=== PATIENT | female | born 1940 | race Caucasian/White ===

== ENCOUNTER 2019-02-22 08:17 | Inpatient (IN) | payer MEDICARE ==
[~2019-02-22] VITALS: Ht 162.6 cm; Wt 63.8 kg
[2019-02-22 14:27] VITALS: BP 117/73
[2019-02-22] MEDS ORDERED: ACETAMINOPHEN 325 MG TABLET PO PRN (15:15)
[2019-02-22] MEDS ORDERED: METHYL SALICYLATE/MENTHOL TOPICAL OINTMENT 29GM TUBE. TP PRN (15:15)
[2019-02-22] MEDS ORDERED: MAGNESIUM HYDROXIDE 2,400 MG/30 ML ORAL.SUSP. PO PRN (15:15)
[2019-02-22] MEDS ORDERED: MAG HYDROX/AL HYDROX/SIMETH 30 ML ORAL.SUSP PO PRN (15:15)
[2019-02-22 16:38] VITALS: BP 97/51
[2019-02-22] MEDS ORDERED: traZODone 50 MG TABLET. PO PRN (16:45)
--- NOTE | 2019-02-22 16:52 | RAD ---
PQRS Compliance Statement: One or more of the following individualized dose reduction techniques were utilized for this examination: 1. Automated exposure control 2. Adjustment of the mA and/or kV according to patient size 3. Use of iterative reconstruction technique CT HEAD WITHOUT CONTRAST History: Recent history of falls and altered mental status. Comparison: None. Technique: Axial images are obtained of the head from the skull base through the vertex without IV contrast. Findings: No mass-effect, midline shift, extra-axial fluid collection, hemorrhage, or obvious acute infarction is identified. Basilar cisterns are patent. The ventricles and sulci are prominent, consistent with age-related cerebral atrophy. There is mild supratentorial white matter hypoattenuation. This is a nonspecific finding but is commonly due to chronic small vessel ischemic disease. Bone windows demonstrate no acute calvarial abnormality. The visualized paranasal sinuses are clear. Mastoid air cells are well aerated. IMPRESSION: 1. No acute intracranial abnormality. 2. Mild generalized cerebral atrophy and mild supratentorial white matter changes probably due to chronic small vessel ischemic disease. Electronically signed by: Mariano Lujan MD (02/22/2019 4:50 PM) [id number]
--- NOTE | 2019-02-22 18:08 | EKG ---
[address] [address] Test Date: 2019-02-22 Test Time: 17:50:17 Pat Name: JEAN DESAI Department: Room: [address] [place] [address] Gender: F Munitions Handler: : 1940 Requested By: NILSON OLIVARES Order Number: [id number] Reading MD: Measurements Intervals [place] Rate: 84 P: 52 IL: 170 QRS: -22 QRSD: 86 T: 32 QT: 366 QTc: 436 Interpretive Statements SINUS RHYTHM LEFTWARD AXIS OTHERWISE NORMAL ECG RI6.02 No previous ECG available for comparison
[2019-02-22 19:17] LABS: BACTERIA,URINE FEW /HPF (0-FEW); BILIRUBIN,URINE NEG (NEG); CLARITY,URINE CLOUDY; COLOR,URINE YELLOW; GLUCOSE,URINE NEG (NEG); NITRITE,URINE NEG (NEG); RBC,URINE 0 /HPF (0-2); SQUAMOUS EPITHELIAL CELL,UR OCC /LPF; UROBILINOGEN,URINE 0.2 mg/dL (0.2 mg/dL)
[2019-02-22] MEDS: traZODone 50 MG TABLET. PO SCH (20:13)
--- NOTE | 2019-02-22 22:44 | PDOC ---
Exam Note: Donato Note: Please also refer to the separate dictated note~for this date of service dictated separately. Discussed the patient with Nursing staff reviewed the chart.~Reviewed interim history and current functioning. Reviewed vital signs,~Labs/ Radiology~and current medications noted below. Continue current treatment with the changes noted in the dictated addendum note Assessment: Vital Signs/I&O: Vital Signs Date Time Temp Pulse Resp B/P (MAP) Pulse Ox O2 Delivery O2 Flow Rate FiO2 02/22/19 16:38 98.7 76 18 97/51 (66) 95 Labs: Laboratory Tests Test 02/22/19 18:45 Urine Collection Type Unknown Urine Color Yellow Urine Clarity Cloudy Urine pH 6.0 Urine Specific [place] 1.025 Urine Protein Neg (NEG-TRACE) Urine Glucose (UA) Neg mg/dL (NEG) Urine Ketones (Stick) Trace mg/dL (NEG) Urine Blood Neg (NEG) Urine Nitrite Neg (NEG) Urine Bilirubin Neg (NEG) Urine Urobilinogen Dipstick 0.2 mg/dL (0.2 mg/dL) Urine Leukocyte Esterase Small (NEG) Urine RBC 0 /HPF (0-2) Urine WBC 1-4 /HPF (0-4) Urine Squamous Epithelial Cells Occ /LPF Urine Bacteria Few /HPF (0-FEW) Current Medications: Meds: Current Medications Medications (Trade) Dose Ordered Sig/Jabari Route PRN Reason Start Time Stop Time Status Last Admin Dose Admin Trazodone HCl (Desyrel) 50 mg QHS PO 02/22/19 21:00 02/22/19 20:13 I have reviewed the current psychotropics carefully including drug interactions. Risk benefit ratio favors no change other than as noted in my dictated progress note. Diagnosis: Problems: (1) Anxiety disorder (2) Schizoaffective disorder, bipolar type (3) Psychosis, atypical (4) Mild cognitive impairment NILSON OLIVARES MD Feb 22, 2019 22:44
[2019-02-23 06:12] VITALS: BP 93/62
[2019-02-23 07:39] LABS: BASO % 1 % (0-3); EOS # 0.1 x10^3/uL (0.0-0.7); EOS % 3 % (0-3); HEMATOCRIT 37.3 % (36.0-47.0); HEMOGLOBIN 12.6 g/dL (12.0-15.5); LYMPH % 32 % (24-48); MEAN CORPUSCULAR HEMOGLOBIN 30 pg (25-35); MEAN CORPUSCULAR HGB CONC 34 g/dL (31-37); MEAN CORPUSCULAR VOLUME 88 fL (79-100); MONO # 0.4 x10^3/uL (0.0-1.1); MONO % 13 % (0-9); NEUT # 1.7 x10^3uL (1.8-7.7); NEUT % 52 % (31-73); PLATELET COUNT 260 x10^3/uL (140-400); RED BLOOD COUNT 4.22 x10^6/uL (3.50-5.40); RED CELL DISTRIBUTION WIDTH 13.2 % (11.5-14.5); WHITE BLOOD COUNT 3.3 x10^3/uL (4.0-11.0)
[2019-02-23 07:44] LABS: ALBUMIN/GLOBULIN RATIO 0.9 (1.0-1.7); CALCIUM 8.3 mg/dL (8.5-10.1); CREATININE 0.6 mg/dL (0.6-1.0); GFR 97.2; MAGNESIUM 2.1 mg/dL (1.8-2.4); POTASSIUM 3.7 mmol/L (3.5-5.1); TOTAL BILIRUBIN 0.4 mg/dL (0.2-1.0); TOTAL PROTEIN 6.3 g/dL (6.4-8.2)
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
[2019-02-23 15:38] LABS: THYROID STIM HORMONE (TSH) 1.659 uIU/mL (0.358-3.740)
[2019-02-23 16:14] VITALS: BP 117/77
[2019-02-23] MEDS: traZODone 50 MG TABLET. PO SCH (19:46)
[2019-02-23 21:11] LABS: THYROXINE 6.1 ug/dL (4.5-12.0)
--- NOTE | 2019-02-23 22:40 | PDOC ---
Exam Note: Donato Note: Please also refer to the separate dictated note~for this date of service dictated separately.~Patient seen individually. Discussed the patient with Nursing staff reviewed the chart.~Reviewed interim history and current functioning. Reviewed vital signs,~Labs/ Radiology~and current medications noted below. Continue current treatment with the changes noted in the dictated addendum note Assessment: Vital Signs/I&O: Vital Signs Date Time Temp Pulse Resp B/P (MAP) Pulse Ox O2 Delivery O2 Flow Rate FiO2 02/23/19 16:14 98.1 84 16 117/77 (90) 95 I & O 02/22/19 02/22/19 02/23/19 14:59 22:59 06:59 Intake Total 240 ml 240 ml Balance 240 ml 240 ml Labs: Laboratory Tests Test 02/23/19 07:09 White Blood Count 3.3 x10^3/uL (4.0-11.0) L Red Blood Count 4.22 x10^6/uL (3.50-5.40) Hemoglobin 12.6 g/dL (12.0-15.5) Hematocrit 37.3 % (36.0-47.0) Mean Corpuscular Volume 88 fL (79-100) Mean Corpuscular Hemoglobin 30 pg (25-35) Mean Corpuscular Hemoglobin Concent 34 g/dL (31-37) Red Cell Distribution Width 13.2 % (11.5-14.5) Platelet Count 260 x10^3/uL (140-400) Neutrophils (%) (Auto) 52 % (31-73) Lymphocytes (%) (Auto) 32 % (24-48) Monocytes (%) (Auto) 13 % (0-9) H Eosinophils (%) (Auto) 3 % (0-3) Basophils (%) (Auto) 1 % (0-3) Neutrophils # (Auto) 1.7 x10^3uL (1.8-7.7) L Lymphocytes # (Auto) 1.0 x10^3/uL (1.0-4.8) Monocytes # (Auto) 0.4 x10^3/uL (0.0-1.1) Eosinophils # (Auto) 0.1 x10^3/uL (0.0-0.7) Basophils # (Auto) 0.0 x10^3/uL (0.0-0.2) Sodium Level 139 mmol/L (136-145) Potassium Level 3.7 mmol/L (3.5-5.1) Chloride Level 103 mmol/L (98-107) Carbon Dioxide Level 28 mmol/L (21-32) Anion Gap 8 (6-14) Blood Urea Nitrogen 16 mg/dL (7-20) Creatinine 0.6 mg/dL (0.6-1.0) Estimated GFR (Cockcroft-Gault) 97.2 BUN/Creatinine Ratio 27 (6-20) H Glucose Level 97 mg/dL (70-99) Calcium Level 8.3 mg/dL (8.5-10.1) L Magnesium Level 2.1 mg/dL (1.8-2.4) Iron Level 43 ug/dL (50-170) L Total Iron Binding Capacity 203 ug/dL (250-450) L Iron Saturation 21 % (15-34) Total Bilirubin 0.4 mg/dL (0.2-1.0) Aspartate Amino Transferase (AST) 34 U/L (15-37) Alanine Aminotransferase (ALT) 42 U/L (14-59) Alkaline Phosphatase 76 U/L (46-116) Total Protein 6.3 g/dL (6.4-8.2) L Albumin 3.0 g/dL (3.4-5.0) L Albumin/Globulin Ratio 0.9 (1.0-1.7) L Triglycerides Level 35 mg/dL (0-150) Cholesterol Level 186 mg/dL (0-200) LDL Cholesterol, Calculated 117 mg/dL (0-100) H VLDL Cholesterol, Calculated 7 mg/dL (0-40) Non-HDL Cholesterol Calculated 124 mg/dL (0-129) HDL Cholesterol 62 mg/dL (40-60) H Cholesterol/HDL Ratio 3.0 25-Hydroxy Vitamin D Total 50.7 ng/mL (30-100) Thyroid Stimulating Hormone (TSH) 1.659 uIU/mL (0.358-3.740) Thyroxine (T4) 6.1 ug/dL (4.5-12.0) Total Triiodothyronine (TT3) 86 ng/dL (71-180) Treponema pallidum Antibody Nonreactive (Nonreactive) Current Medications: I have reviewed the current psychotropics carefully including drug interactions. Risk benefit ratio favors no change other than as noted in my dictated progress note. Diagnosis: Problems: (1) Impulse control disorder (2) Anxiety disorder (3) Schizoaffective disorder, bipolar type (4) Psychosis, atypical (5) Mild cognitive impairment NILSON OLIVARES MD Feb 23, 2019 22:40
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
[2019-02-24 02:44] LABS: HEMOGLOBIN A1C 5.4 % (4.8-5.6)
[2019-02-24 06:15] VITALS: BP 105/69
[2019-02-24 15:40] VITALS: BP 92/56
[2019-02-24] MEDS: DIVALPROEX ER 500 MG TAB.ER.24H PO SCH (20:04)
[2019-02-24] MEDS: MIRTAZAPINE 7.5 MG TABLET. PO SCH (20:06)
--- NOTE | 2019-02-24 23:04 | PDOC ---
Exam Note: Donato Note: Please also refer to the separate dictated note~for this date of service dictated separately.~Patient seen individually. Discussed the patient with Nursing staff reviewed the chart.~Reviewed interim history and current functioning. Reviewed vital signs,~Labs/ Radiology~and current medications noted below. Continue current treatment with the changes noted in the dictated addendum note Assessment: Vital Signs/I&O: Vital Signs Date Time Temp Pulse Resp B/P (MAP) Pulse Ox O2 Delivery O2 Flow Rate FiO2 02/24/19 15:40 98.4 76 16 92/56 (68) 97 02/24/19 06:15 Room Air I & O 02/23/19 02/23/19 02/24/19 15:00 23:00 07:00 Intake Total 600 ml 240 ml Balance 600 ml 240 ml Current Medications: Meds: Current Medications Medications (Trade) Dose Ordered Sig/Jabari Route PRN Reason Start Time Stop Time Status Last Admin Dose Admin Mirtazapine (Remeron) 7.5 mg QHS PO 02/24/19 21:00 02/24/19 20:06 Divalproex Sodium (Depakote Er) 500 mg QHS PO 02/24/19 21:00 02/24/19 20:04 I have reviewed the current psychotropics carefully including drug interactions. Risk benefit ratio favors no change other than as noted in my dictated progress note. Diagnosis: Problems: (1) Impulse control disorder (2) Anxiety disorder (3) Schizoaffective disorder, bipolar type (4) Psychosis, atypical (5) Mild cognitive impairment NILSON OLIVARES MD Feb 24, 2019 23:04
[2019-02-25 05:58] VITALS: BP 106/60
[2019-02-25] MEDS ORDERED: MAGN400T3 PO (12:35)
[2019-02-25] MEDS ORDERED: [UNRECOGNIZED DRUG - CODE] PO (12:35)
--- NOTE | 2019-02-25 13:47 | PN ---
DATE: 02/23/2019 PSYCHIATRIC PROGRESS NOTE This is a late entry 02/23/2019 covers elements not covered in my initial note. SUBJECTIVE: I met with the patient in the evening at some length in her room. The patient slept 6-1/2 hours previous evening. Overall, she remains somewhat withdrawn, anxious. REVIEW OF SYSTEMS: No CV, , pulmonary, eye, ENT system symptoms on review. She was paranoid, somewhat delusional per nursing report, still believes her blood is dog urine. MENTAL STATUS EXAM: Oriented to herself and situation. Speech has some latency, coherent. Abstraction fair, computation impaired, language function intact. She was smiling as I met with her, somewhat minimizing any of her psychiatric symptoms. LABORATORY DATA: Reviewed. IMPRESSION: Schizoaffective disorder, bipolar type, mixed with psychotic features; anxiety disorder, unspecified; mild cognitive impairment. PLAN: We are obtaining past psychiatric records from her providers. We will add trazodone p.r.n. for insomnia. Rest unchanged for now. NILSON OLIVARES MD DR: KARINA/kaitlin JOB#: [id number] / [id number]
[2019-02-25] MEDS: ARIPiprazole 5 MG TABLET PO SCH (14:12)
[2019-02-25 16:00] VITALS: BP 112/68
[2019-02-25] MEDS: MAGNESIUM OXIDE 400 MG TABLET PO SCH (17:33)
[2019-02-25] MEDS: [UNRECOGNIZED DRUG - OTHER] PO SCH (17:33)
[2019-02-25] MEDS: MIRTAZAPINE 7.5 MG TABLET. PO SCH (19:22)
[2019-02-25] MEDS: DIVALPROEX ER 500 MG TAB.ER.24H PO SCH (19:22)
--- NOTE | 2019-02-25 22:44 | PDOC ---
Exam Note: Donato Note: Please also refer to the separate dictated note~for this date of service dictated separately.~Patient seen individually. Discussed the patient with Nursing staff reviewed the chart.~Reviewed interim history and current functioning. Reviewed vital signs,~Labs/ Radiology~and current medications noted below. Continue current treatment with the changes noted in the dictated addendum note Assessment: Vital Signs/I&O: Vital Signs Date Time Temp Pulse Resp B/P (MAP) Pulse Ox O2 Delivery O2 Flow Rate FiO2 02/25/19 16:00 97.9 81 18 112/68 (83) 97 02/24/19 06:15 Room Air I & O 02/24/19 02/24/19 02/25/19 15:00 23:00 07:00 Intake Total 960 ml 720 ml Balance 960 ml 720 ml Current Medications: Meds: Current Medications Medications (Trade) Dose Ordered Sig/Jabari Route PRN Reason Start Time Stop Time Status Last Admin Dose Admin Aripiprazole (Abilify) 5 mg DAILY PO 02/25/19 09:00 02/25/19 14:12 Magnesium Oxide (Magnesium Oxide) 400 mg BIDACLD PO 02/25/19 16:30 02/25/19 17:33 Non-Formulary Medication 1 ea TIDAC PO 02/25/19 16:30 02/25/19 17:33 I have reviewed the current psychotropics carefully including drug interactions. Risk benefit ratio favors no change other than as noted in my dictated progress note. Diagnosis: Problems: (1) Impulse control disorder (2) Anxiety disorder (3) Schizoaffective disorder, bipolar type (4) Psychosis, atypical (5) Mild cognitive impairment NILSON OLIVARES MD Feb 25, 2019 22:44
[2019-02-26 05:55] VITALS: BP 116/71
[2019-02-26] MEDS: ARIPiprazole 5 MG TABLET PO SCH (07:52)
[2019-02-26] MEDS: [UNRECOGNIZED DRUG - OTHER] PO SCH ×3 (07:52→18:26)
[2019-02-26] MEDS: MAGNESIUM OXIDE 400 MG TABLET PO SCH ×2 (12:14→18:26)
--- NOTE | 2019-02-26 13:12 | PN ---
DATE: 02/24/2019 PSYCHIATRIC PROGRESS NOTE This late entry 02/24/2019 covers elements not covered in my initial note. SUBJECTIVE: I met with the patient in the evening and staffed a treatment team meeting with the entire team earlier in the day. The patient slept 6-1/2 hours. Appetite 100%. I have reviewed past psychiatric records for outpatient treatment, the diagnosis of psychotic disorder versus schizoaffective disorder and relative noncompliance with treatment. Reviewed the history prompting admission including being extremely hyperverbal, grandiose, psychotic and then the presentation at the long-term and then refer to us from [facility]. REVIEW OF SYSTEMS: No CV, , pulmonary, eye, ENT system symptoms on review. MENTAL STATUS EXAM: Oriented to herself and situation. Insight limited, judgment marginal, language function intact, attention span short. Mood and affect remains somewhat withdrawn at times, labile. LABORATORY DATA: Reviewed. IMPRESSION: Schizoaffective disorder, bipolar type, mixed with psychotic features; anxiety disorder, unspecified; mild cognitive impairment. PLAN: Continue current psychotropics including Remeron 7.5 mg at bedtime. I was informed by the she is unable to tolerate trazodone due to burning sensations in the chest. Given her schizoaffective disorder we will start her on Depakote ER 500 mg at bedtime. Check CBC, CMP, valproic acid level in 3 days and Abilify [address] head shows atrophy, white matter changes. NILSON OLIVARES MD DR: KARINA/kaitlin JOB#: [id number] / [id number]
[2019-02-26 16:20] VITALS: BP 106/68
[2019-02-26] MEDS: MIRTAZAPINE 7.5 MG TABLET. PO SCH (19:27)
[2019-02-26] MEDS: DIVALPROEX ER 500 MG TAB.ER.24H PO SCH (19:27)
--- NOTE | 2019-02-26 22:14 | PDOC ---
Exam Note: Donato Note: Please also refer to the separate dictated note~for this date of service dictated separately.~Patient seen individually. Discussed the patient with Nursing staff reviewed the chart.~Reviewed interim history and current functioning. Reviewed vital signs,~Labs/ Radiology~and current medications noted below. Continue current treatment with the changes noted in the dictated addendum note Assessment: Vital Signs/I&O: Vital Signs Date Time Temp Pulse Resp B/P (MAP) Pulse Ox O2 Delivery O2 Flow Rate FiO2 02/26/19 16:20 98.6 71 16 106/68 (81) 97 02/26/19 05:55 Room Air I & O 02/25/19 02/25/19 02/26/19 14:59 22:59 06:59 Intake Total 960 ml 240 ml 0 ml Balance 960 ml 240 ml 0 ml Current Medications: I have reviewed the current psychotropics carefully including drug interactions. Risk benefit ratio favors no change other than as noted in my dictated progress note. Diagnosis: Problems: (1) Impulse control disorder (2) Anxiety disorder (3) Schizoaffective disorder, bipolar type (4) Psychosis, atypical (5) Mild cognitive impairment NILSON OLIVARES MD Feb 26, 2019 22:14
--- NOTE | 2019-02-27 02:03 | PN ---
DATE: 02/25/2019 PSYCHIATRIC PROGRESS NOTE This late entry of February 25 covers elements not covered in my initial note. SUBJECTIVE: I met with the patient in the evening at length in her room. Per nursing staff, the patient slept 9-1/2 hours. She is somewhat withdrawn. Her is insistent on discharging her AMA. I returned his call, . stated that they are Catholics and they often hear and see things as part of their sabianist. He states the reason he agreed to let her go to the Emergency Room because there was nothing he could do to "bring her down." He states, however, most of the problems happened after she arrived in the Emergency Room and was given Haldol and that made her hallucinate. He is convinced that the Haldol causes her to be psychotic and if left for herself she would be just fine. He is quite insistent on her discharge quickly and states she has been tried on every psychotropic medications and nothing has worked. I had a lengthy discussion with him trying to help him understand her diagnosis, treatment, but it is unclear to what extent he is able to incorporate this in his thought processes. REVIEW OF SYSTEMS: No CV, , pulmonary, eye system symptoms on review. MENTAL STATUS EXAM: The patient is withdrawn to her room. Per nursing report has been hearing demons and voices. Abstraction fair. Computation impaired. Language function intact. She minimizes the fact that her blood is dog urine, but is quite suspicious, delusional. No active suicidal or homicidal ideation. LABORATORY DATA: Reviewed. IMPRESSION: Schizoaffective disorder, bipolar type, mixed with psychotic features; anxiety disorder, unspecified; psychotic disorder, unspecified. PLAN: Continue Depakote ER 500 mg at bedtime. Check labs level, adjust as indicated. Remeron continue 7.5 mg at bedtime and Abilify 5 mg a day. I am not sure if the will discharge her AMA, but we will have the social service staff coordinate with the on February 26. MAN Bam OLIVARES MD DR: KARINA/kaitlin JOB#: [id number] / [id number]
[2019-02-27 06:08] VITALS: BP 106/67
[2019-02-27 08:03] LABS: HEMATOCRIT 38.9 % (36.0-47.0); HEMOGLOBIN 12.8 g/dL (12.0-15.5); RED BLOOD COUNT 4.3 x10^6/uL (3.50-5.40); RED CELL DISTRIBUTION WIDTH 13.2 % (11.5-14.5); WHITE BLOOD COUNT 4.3 x10^3/uL (4.0-11.0)
[2019-02-27] MEDS: [UNRECOGNIZED DRUG - OTHER] PO SCH ×3 (08:16→16:58)
[2019-02-27] MEDS: MAGNESIUM OXIDE 400 MG TABLET PO SCH ×2 (08:16→17:00)
[2019-02-27] MEDS: ARIPiprazole 5 MG TABLET PO SCH (08:18)
[2019-02-27 08:22] LABS: ALBUMIN 2.8 g/dL (3.4-5.0); ALBUMIN/GLOBULIN RATIO 0.8 (1.0-1.7); ALK PHOS 66 U/L (46-116); ALT (SGPT) 31 U/L (14-59); ANION GAP 5 (6-14); AST (SGOT) 23 U/L (15-37); BLOOD UREA NITROGEN 14 mg/dL (7-20); BUN/CREATININE RATIO 23 (6-20); CARBON DIOXIDE 29 mmol/L (21-32); CHLORIDE 104 mmol/L (98-107); CREATININE 0.6 mg/dL (0.6-1.0); GFR 97.2; GLUCOSE 90 mg/dL (70-99); SODIUM 138 mmol/L (136-145); TOTAL BILIRUBIN 0.2 mg/dL (0.2-1.0); TOTAL PROTEIN 6.5 g/dL (6.4-8.2)
[2019-02-27 08:35] LABS: VAL ACID 48 mcg/mL (50-100)
[2019-02-27 15:58] VITALS: BP 102/68
[2019-02-27] MEDS: DIVALPROEX ER 500 MG TAB.ER.24H PO SCH (19:18)
[2019-02-27] MEDS: DIVALPROEX ER 250 MG TAB.ER.24H. PO SCH (20:57)
--- NOTE | 2019-02-27 22:55 | PDOC ---
Exam Note: Donato Note: Please also refer to the separate dictated note~for this date of service dictated separately.~Patient seen individually. Discussed the patient with Nursing staff reviewed the chart.~Reviewed interim history and current functioning. Reviewed vital signs,~Labs/ Radiology~and current medications noted below. Continue current treatment with the changes noted in the dictated addendum note Assessment: Vital Signs/I&O: Vital Signs Date Time Temp Pulse Resp B/P (MAP) Pulse Ox O2 Delivery O2 Flow Rate FiO2 02/27/19 15:58 98.5 77 14 102/68 (79) 95 02/26/19 05:55 Room Air I & O 02/26/19 02/26/19 02/27/19 15:00 23:00 07:00 Intake Total 240 ml 480 ml Balance 240 ml 480 ml Labs: Laboratory Tests Test 02/27/19 07:32 White Blood Count 4.3 x10^3/uL (4.0-11.0) Red Blood Count 4.30 x10^6/uL (3.50-5.40) Hemoglobin 12.8 g/dL (12.0-15.5) Hematocrit 38.9 % (36.0-47.0) Mean Corpuscular Volume 91 fL (79-100) Mean Corpuscular Hemoglobin 30 pg (25-35) Mean Corpuscular Hemoglobin Concent 33 g/dL (31-37) Red Cell Distribution Width 13.2 % (11.5-14.5) Platelet Count 271 x10^3/uL (140-400) Sodium Level 138 mmol/L (136-145) Potassium Level 4.0 mmol/L (3.5-5.1) Chloride Level 104 mmol/L (98-107) Carbon Dioxide Level 29 mmol/L (21-32) Anion Gap 5 (6-14) L Blood Urea Nitrogen 14 mg/dL (7-20) Creatinine 0.6 mg/dL (0.6-1.0) Estimated GFR (Cockcroft-Gault) 97.2 BUN/Creatinine Ratio 23 (6-20) H Glucose Level 90 mg/dL (70-99) Calcium Level 9.0 mg/dL (8.5-10.1) Total Bilirubin 0.2 mg/dL (0.2-1.0) Aspartate Amino Transferase (AST) 23 U/L (15-37) Alanine Aminotransferase (ALT) 31 U/L (14-59) Alkaline Phosphatase 66 U/L (46-116) Total Protein 6.5 g/dL (6.4-8.2) Albumin 2.8 g/dL (3.4-5.0) L Albumin/Globulin Ratio 0.8 (1.0-1.7) L Valproic Acid Level 48 mcg/mL (50-100) L Valproic Acid Last Dose Date 02/26/19 Valproic Acid Last Dose Time 2100 Current Medications: Meds: Current Medications Medications (Trade) Dose Ordered Sig/Jabari Route PRN Reason Start Time Stop Time Status Last Admin Dose Admin Aripiprazole (Abilify) 7.5 mg DAILY PO 02/27/19 09:00 02/28/19 21:00 02/27/19 08:18 Divalproex Sodium (Depakote Er) 250 mg QHS PO 02/27/19 21:00 02/27/19 20:57 I have reviewed the current psychotropics carefully including drug interactions. Risk benefit ratio favors no change other than as noted in my dictated progress note. Diagnosis: Problems: (1) Impulse control disorder (2) Anxiety disorder (3) Schizoaffective disorder, bipolar type (4) Psychosis, atypical (5) Mild cognitive impairment NILSON OLIVARES MD Feb 27, 2019 22:55
[2019-02-28 05:51] VITALS: BP 102/67
[2019-02-28] MEDS: [UNRECOGNIZED DRUG - OTHER] PO SCH ×3 (08:01→17:02)
[2019-02-28] MEDS: MAGNESIUM OXIDE 400 MG TABLET PO SCH ×2 (08:02→17:02)
[2019-02-28] MEDS: ARIPiprazole 5 MG TABLET PO SCH (08:02)
[2019-02-28 16:20] VITALS: BP 98/65
[2019-02-28] MEDS: DIVALPROEX ER 250 MG TAB.ER.24H. PO SCH (20:25)
[2019-02-28] MEDS: DIVALPROEX ER 500 MG TAB.ER.24H PO SCH (20:25)
--- NOTE | 2019-02-28 22:07 | PN ---
DATE: 02/27/2019 PSYCHIATRIC PROGRESS NOTE This is a late entry 02/27/2019, covers the elements not covered in my initial note. SUBJECTIVE: The patient has been somewhat withdrawn, but comes out for her meals, sleeping well at night. Appetite is fair. Her visited her. Valproic acid level is subtherapeutic at 48, on Depakote ER 500 mg at bedtime. REVIEW OF SYSTEMS: No CV, , pulmonary, eye, ENT system symptoms on review. MENTAL STATUS EXAM: Oriented to herself and situation. Speech is often responses monosyllabic. No active suicidal or homicidal ideation. LABORATORY DATA: Reviewed. IMPRESSION: Unchanged from initial note. PLAN: Increase Depakote ER to 750 mg at bedtime. Check CBC, CMP, valproic acid level in 3 days to reach therapeutic level. Continue rest unchanged. MAN Bam OLIVARES MD DR: KARINA/kaitlin JOB#: [id number] / [id number]
--- NOTE | 2019-02-28 22:08 | PN ---
DATE: 02/26/2019 PSYCHIATRIC PROGRESS NOTE This late entry 02/26/2019 covers elements not covered in my initial note. SUBJECTIVE: The patient still complains of hearing demons voices at times. UA on final was noncontributory, normal barry. has informed us he does not want her on Remeron . Previous night, she was talking about hearing demonic voices. On 02/26/2019, during the day, the devil's voice was not telling her to stop drinking and eating. She has been more pleasant and interactive, though she still spends much time in the room. LABORATORY DATA: Reviewed. IMPRESSION: Unchanged from initial note. PLAN: No change from initial note and we will increase the Abilify from 5 mg a day to 7.5 mg for 2 days, then 10 mg a day for her ongoing psychosis. MAN Bam OLIVARES MD DR: KARINA/kaitlin JOB#: [id number] / [id number]
--- NOTE | 2019-02-28 22:36 | PDOC ---
Exam Note: Donato Note: Please also refer to the separate dictated note~for this date of service dictated separately.~Patient seen individually. Discussed the patient with Nursing staff reviewed the chart.~Reviewed interim history and current functioning. Reviewed vital signs,~Labs/ Radiology~and current medications noted below. Continue current treatment with the changes noted in the dictated addendum note Assessment: Vital Signs/I&O: Vital Signs Date Time Temp Pulse Resp B/P (MAP) Pulse Ox O2 Delivery O2 Flow Rate FiO2 02/28/19 16:20 97.7 85 20 98/65 (76) 95 02/28/19 05:51 Room Air I & O 02/27/19 02/27/19 02/28/19 14:59 22:59 06:59 Intake Total 360 ml 240 ml 240 ml Balance 360 ml 240 ml 240 ml Current Medications: I have reviewed the current psychotropics carefully including drug interactions. Risk benefit ratio favors no change other than as noted in my dictated progress note. Diagnosis: Problems: (1) Impulse control disorder (2) Anxiety disorder (3) Schizoaffective disorder, bipolar type (4) Psychosis, atypical (5) Mild cognitive impairment NILSON OLIVARES MD Feb 28, 2019 22:36
[2019-03-01 05:49] VITALS: BP 105/70
[2019-03-01] MEDS: [UNRECOGNIZED DRUG - OTHER] PO SCH ×2 (07:37→12:03)
[2019-03-01] MEDS: MAGNESIUM OXIDE 400 MG TABLET PO SCH (07:38)
[2019-03-01] MEDS ORDERED: ARIPiprazole 10 MG TABLET PO SCH (09:00)
[2019-03-01] MEDS ORDERED: ARIP10TA9 PO (14:11)
[2019-03-01] MEDS ORDERED: ACET325T21 PO (14:11)
[2019-03-01] MEDS ORDERED: DIVA500T4 PO (14:12)
[2019-03-01] MEDS ORDERED: DIVA250T PO (14:13)
[2019-03-01] MEDS ORDERED: MAG355OR17 PO (14:13)
[2019-03-01] MEDS ORDERED: MAGN2400 PO (14:13)
[2019-03-01] MEDS ORDERED: METH29OI TP (14:14)
[2019-03-01 15:51] VITALS: BP 118/57
--- NOTE | 2019-03-01 22:39 | PDOC ---
Exam Note: Donato Note: Please also refer to the separate dictated note~for this date of service dictated separately.~Patient seen individually. Discussed the patient with Nursing staff reviewed the chart.~Reviewed interim history and current functioning. Reviewed vital signs,~Labs/ Radiology~and current medications noted below. Continue current treatment with the changes noted in the dictated addendum note Assessment: Vital Signs/I&O: Vital Signs Date Time Temp Pulse Resp B/P (MAP) Pulse Ox O2 Delivery O2 Flow Rate FiO2 03/01/19 15:51 99.7 84 16 118/57 (77) 97 02/28/19 05:51 Room Air I & O 02/28/19 02/28/19 03/01/19 14:59 22:59 06:59 Intake Total 720 ml 240 ml 0 ml Balance 720 ml 240 ml 0 ml Current Medications: Meds: Current Medications Medications (Trade) Dose Ordered Sig/Jabari Route PRN Reason Start Time Stop Time Status Last Admin Dose Admin Aripiprazole (Abilify) 10 mg DAILY PO 03/01/19 09:00 03/01/19 16:02 DC 03/01/19 07:38 I have reviewed the current psychotropics carefully including drug interactions. Risk benefit ratio favors no change other than as noted in my dictated progress note. Diagnosis: Problems: (1) Impulse control disorder (2) Anxiety disorder (3) Schizoaffective disorder, bipolar type (4) Psychosis, atypical (5) Mild cognitive impairment NILSON OLIVARES MD Mar 01, 2019 22:39
--- NOTE | 2019-03-01 23:06 | PN ---
DATE: 02/28/2019 PSYCHIATRIC PROGRESS NOTE This is a late entry 02/28/2019 covers elements not covered in my initial note. SUBJECTIVE: I met with the patient evening of 02/28/2019 in her room. The patient slept 6-1/2 hours previous night. She has been somewhat withdrawn, spending much time in her room, has questionable hallucinations, but denies command hallucinations. REVIEW OF SYSTEMS: No CV, , pulmonary, eye, ENT system symptoms on review. Reliability varies. MENTAL STATUS EXAM: Oriented to herself and situation. Speech moderate latency, often responses monosyllabic. Abstraction fair, computation impaired, language function intact. Mood and affect is withdrawn. LABORATORY DATA: Reviewed. IMPRESSION: Unchanged from initial note. PLAN: No change from initial note. Depakote has been increased. Repeat labs level awaited, maintain Abilify at current dosage. MAN Bam OLIVARES MD DR: KARINA/kaitlin JOB#: [id number] / [id number]
--- NOTE | 2019-03-02 10:30 | DS ---
DATE OF DISCHARGE: 03/01/2019 DISCHARGE SUMMARY/PSYCHIATRIC PROGRESS NOTE This late entry, 03/01/2019, covers elements not covered in my initial note. REASON FOR ADMISSION: Please refer to the admission history for details. Briefly, the patient is a 78-year-old female referred to us from the [facility] Emergency Room where she presented from home being extremely delusional. She was convinced that she had dog urine for blood. She is grandiose, combative, throwing things at home. She tried to choke her . Noncompliant with medications. She was hearing demonic voices ordered with active auditory hallucinations and some command hallucinations. She had been noncompliant with her outpatient treatment at the [facility] and was admitted for inpatient psychiatric stabilization. SIGNIFICANT FINDINGS AND CLINICAL COURSE: Following admission, the patient was seen daily individually by myself from a psychiatric standpoint, medical followup with Dr. Dunn. Shortly into the patient's admission, was wanting to discharge her AMA. I talked to him and discussed at some length the need for hospitalization, stabilization on her psychotropics and he was agreeable to continuing this, but then again returned to demand that she be discharged AMA, which we did. No active suicidal or homicidal ideation at discharge. Prior to discharge on 03/01/2019, no CV, , pulmonary, eye, ENT system symptoms on review. MENTAL STATUS EXAM: Oriented to herself and situation. Speech is coherent, abstraction fair, computation impaired, language function intact, attention span short. She remains somewhat psychotic, paranoid. Labs reviewed. No suicidal or homicidal ideation. IMPRESSION: Schizoaffective disorder, bipolar type, mixed with psychotic features. Mild cognitive impairment; anxiety disorder, unspecified. Rest unchanged from admission. PLAN: The patient was discharged against medical advice and advised to follow up outpatient, but at the time of this dictation, I am aware that the called shortly after discharge and the patient was unmanageable at home. He said he made a mistake discharging her AMA and requesting for her to be readmitted for dangerous behaviors. Time for discharge day management greater than 30 minutes. NILSON OLIVARES MD DR: KARINA/kaitlin JOB#: [id number] / [id number]
== END 2019-03-01 16:01 | disposition left against medical advice (07) | DRG 885 ==
LOC: GEROPSY 13:54
PROVIDERS: ADMIT Psychiatry & Neurology Psychiatry; ATTEND Psychiatry & Neurology Psychiatry
DX: F25.0 Schizoaffective disorder, bipolar type (principal); F41.9 Anxiety disorder, unspecified; F63.9 Impulse disorder, unspecified; G31.84 Mild cognitive impairment of uncertain or unknown etiology; M81.0 Age-related osteoporosis without current pathological fracture; Z53.21 Procedure and treatment not carried out due to patient leaving prior to being seen by health care provider; M19.90 Unspecified osteoarthritis, unspecified site; Z79.899 Other long term (current) drug therapy; Z87.81 Personal history of (healed) traumatic fracture; Z91.14 Patient's other noncompliance with medication regimen; Z91.19 Patient's noncompliance with other medical treatment and regimen; Z88.8 Allergy status to other drugs, medicaments and biological substances
CPT/HCPCS: 36415; 70450; 80053; 80061; 80164; 81001; 82306; 83036; 83540; 83550; 83735; 84436; 84443; 84480; 85025; 85027; 86592; 87086; 93005

== ENCOUNTER 2019-03-01 17:33 | Inpatient (IN) | payer MEDICARE ==
[~2019-03-01] VITALS: Ht 162.6 cm; Wt 63.3 kg
[~2019-03-01 17:33] MED LIST: ACET325T21 PO; ARIP10TA9 PO; DIVA250T PO; DIVA500T4 PO; MAG355OR17 PO; MAGN2400 PO; MAGN400T3 PO; METH29OI TP; [UNRECOGNIZED DRUG - CODE] PO
[2019-03-01] MEDS ORDERED: ACETAMINOPHEN 120 MG SUPP.RECT ONE (17:49)
[2019-03-01] MEDS ORDERED: ACETAMINOPHEN 160 MG/5 ML ORAL.SUSP. ONE (17:50)
[2019-03-01 19:07] LABS: BACTERIA,URINE 0 /HPF (0-FEW); BILIRUBIN,URINE NEG (NEG); CLARITY,URINE HAZY; COLOR,URINE YELLOW; GLUCOSE,URINE NEG (NEG); NITRITE,URINE NEG (NEG); RBC,URINE 0 /HPF (0-2); SQUAMOUS EPITHELIAL CELL,UR OCC /LPF; UROBILINOGEN,URINE 0.2 mg/dL (0.2 mg/dL); WBC,URINE OCC /HPF (0-4)
[2019-03-01 19:48] LABS: BARBITURATES NEG (NEG); BENZODIAZEPINES NEG (NEG); CANNABINOIDS NEG (NEG); COCAINE NEG (NEG); METHADONE NEG (NEG); OPIATES NEG (NEG); PHENCYCLIDINE NEG (NEG)
--- NOTE | 2019-03-01 19:48 | PHYS DOC ---
Past History Past Medical History: Anxiety Past Surgical History: Cholecystectomy Additional Smoking Information: Nonsmoker Alcohol Use: None Drug Use: None Adult General Chief Complaint Chief Complaint: PSYCH EVALUATION HPI HPI Patient is a 78 year old female who presents with anxiety. Today she left the [facility] unit against medical advice. She was driving home with her when she started having "severe anxiety" and turned around to return to the emergency department. She reports that her left town and will not return for a few days. She has been experiencing anxiety for several years and has been in and out of the [facility] unit. She denies any other c omplaints. She has suicidal ideation saying "I would hurt myself if I could, but I don't have access to anything to do it and I am too afraid to jump in front of a car". She has homicidal ideation saying "I want to hurt my if I could, and have tried before". She is having auditory hallucinations that tell her "she is a terrible person". She denies visual hallucinations. Review of Systems Review of Systems Constitutional: Denies fever or chills Eyes: Denies redness or eye pain HENT: Denies nasal congestion or sore throat Respiratory: Denies cough or shortness of breath Cardiovascular: Denies chest pain or palpitations GI: Denies abdominal pain, nausea, or vomiting : Denies dysuria or hematuria Musculoskeletal: Denies back pain or joint pain Integument: Denies rash or skin lesions Neurologic: Denies headache, focal weakness or sensory changes Complete systems were reviewed and found to be within normal limits, except as documented in this note. Current Medications Current Medications Current Medications Medications (Trade) Dose Ordered Sig/Jabari Start Time Stop Time Status Last Admin Dose Admin Acetaminophen (Tylenol Supp) 120 mg STK-MED ONCE 03/01/19 17:49 03/01/19 18:31 DC Acetaminophen (Tylenol) 160 mg STK-MED ONCE 03/01/19 17:50 03/01/19 18:31 DC Lorazepam (Ativan Inj) 1 mg 1X ONCE 03/01/19 18:45 03/01/19 18:46 DC Allergies Allergies Allergies Coded Allergies Type Severity Reaction Last Updated Verified bupropion Adverse Reaction Intermediate 02/23/19 Yes haloperidol Adverse Reaction Intermediate 02/23/19 Yes risperidone Adverse Reaction Intermediate 02/23/19 Yes Physical Exam Physical Exam Constitutional: Well developed, well nourished, no acute distress, non-toxic appearance HENT: Normocephalic, atraumatic, oropharynx moist Eyes: PERRL, EOMI, conjunctiva normal, no discharge Neck: Normal range of motion, no tenderness, supple Cardiovascular: Heart rate normal, regular rhythm Lungs & Thorax: Bilateral breath sounds clear to auscultation, no wheezing Abdomen: Soft, no tenderness Skin: Warm, dry, no erythema, no rash Back: No tenderness, no CVA tenderness Extremities: No tenderness, ROM intact, no edema Neurologic: Alert and oriented X 3, normal motor function, normal sensory function, no focal deficits noted Psychologic: Flat Affect, poor judgement, depressed mood. Current Patient Data Vital Signs Vital Signs Date Time Temp Pulse Resp B/P (MAP) Pulse Ox O2 Delivery O2 Flow Rate FiO2 03/01/19 18:19 98.5 81 19 97 Room Air Lab Results Laboratory Tests Test 03/01/19 18:40 Urine Collection Type Unknown Urine Color Yellow Urine Clarity Hazy Urine pH 6.5 Urine Specific [place] 1.015 Urine Protein Neg (NEG-TRACE) Urine Glucose (UA) Neg mg/dL (NEG) Urine Ketones (Stick) Neg mg/dL (NEG) Urine Blood Neg (NEG) Urine Nitrite Neg (NEG) Urine Bilirubin Neg (NEG) Urine Urobilinogen Dipstick 0.2 mg/dL (0.2 mg/dL) Urine Leukocyte Esterase Small (NEG) Urine RBC 0 /HPF (0-2) Urine WBC Occ /HPF (0-4) Urine Squamous Epithelial Cells Occ /LPF Urine Bacteria 0 /HPF (0-FEW) EKG EKG @1831 NSR at 75bpm, NO ST elevation, QRS 86ms, QT/QTc 370/416ms Radiology/Procedures Radiology/Procedures [] Course & Med Decision Making Course & Med Decision Making Pertinent Lab studies reviewed. (See chart for details) Mrs. Bernal is a 78-year-old female who presents with anxiety. Earlier today she left the [facility] medical advice. She was driving home with her when she started to feel "severe anxiety" and return to the emergency department. She reports a history of anxiety for several years, and it is requesting IM Ativan. She reports suicidal ideation, homicidal ideation, and auditory hallucinations. She does not feel safe anywhere. After talking with the senior behavioral unit they only requested an EKG and UA for readmission because they obtained labs yesterday. She is given IM Ativan. EKG and urinalysis are stable. Patient jenelle medically cleared for re-admission to [facility] under Dr. Landin. Discussed findings and plan with patient, who acknowledge understanding and agreement. Dragon Disclaimer Dragon Disclaimer This electronic medical record was generated, in whole or in part, using a voice recognition dictation system. Departure Departure: Impression: Primary Impression: Psychosis, atypical Disposition: 65 XFER TO PSYCH HOSP/UNIT (Admitted to [facility]) Admitting Physician: Other (Mushtaq) Condition: GUARDED Referrals: MILLER ROSS (PCP) FILIBERTO BENDER DO Mar 01, 2019 19:48
[2019-03-01 19:52] LABS: AMPHETAMINE/METHAMPHETAMINE NEG (NEG)
[2019-03-01] MEDS ORDERED: METHYL SALICYLATE/MENTHOL TOPICAL OINTMENT 29GM TUBE. TP PRN ×2 (22:45→23:00)
[2019-03-01] MEDS ORDERED: ACETAMINOPHEN 325 MG TABLET PO PRN ×2 (22:45→23:00)
[2019-03-01] MEDS ORDERED: MAG HYDROX/AL HYDROX/SIMETH 30 ML ORAL.SUSP PO PRN (22:45)
[2019-03-01] MEDS ORDERED: NON FORMULARY ITEM (Mag Hydrox/Al Hydrox/Simeth (Advanced Antacid Liquid) 15 ML) PO PRN (23:00)
[2019-03-01] MEDS ORDERED: NON FORMULARY ITEM (Magnesium Hydroxide (Milk Of Magnesia) 2,400 MG) PO PRN (23:00)
[2019-03-01 23:05] VITALS: BP 122/81
[2019-03-02 05:29] VITALS: BP 99/63
[2019-03-02] MEDS: MULTIZYME PO SCH ×3 (07:30→17:42)
[2019-03-02 07:40] LABS: BASO % 1 % (0-3); EOS # 0.2 x10^3/uL (0.0-0.7); EOS % 4 % (0-3); HEMATOCRIT 39.1 % (36.0-47.0); HEMOGLOBIN 12.9 g/dL (12.0-15.5); LYMPH # 1.3 x10^3/uL (1.0-4.8); LYMPH % 32 % (24-48); MEAN CORPUSCULAR HEMOGLOBIN 30 pg (25-35); MEAN CORPUSCULAR HGB CONC 33 g/dL (31-37); MEAN CORPUSCULAR VOLUME 90 fL (79-100); MONO # 0.3 x10^3/uL (0.0-1.1); MONO % 7 % (0-9); NEUT # 2.4 x10^3uL (1.8-7.7); NEUT % 56 % (31-73); PLATELET COUNT 259 x10^3/uL (140-400); RED BLOOD COUNT 4.33 x10^6/uL (3.50-5.40); RED CELL DISTRIBUTION WIDTH 12.9 % (11.5-14.5); WHITE BLOOD COUNT 4.2 x10^3/uL (4.0-11.0)
[2019-03-02 07:46] LABS: ALBUMIN 2.8 g/dL (3.4-5.0); ALBUMIN/GLOBULIN RATIO 0.8 (1.0-1.7); CALCIUM 8.6 mg/dL (8.5-10.1); CREATININE 0.5 mg/dL (0.6-1.0); MAGNESIUM 2.1 mg/dL (1.8-2.4); TOTAL BILIRUBIN 0.2 mg/dL (0.2-1.0); TOTAL PROTEIN 6.4 g/dL (6.4-8.2)
[2019-03-02] MEDS: ARIPiprazole 10 MG TABLET PO SCH (08:08)
[2019-03-02] MEDS: MAGNESIUM OXIDE 400 MG TABLET PO SCH ×2 (12:16→17:42)
[2019-03-02 12:53] LABS: THYROID STIM HORMONE (TSH) 3.59 uIU/mL (0.358-3.740)
[2019-03-02 15:49] VITALS: BP 96/62
[2019-03-02] MEDS: DIVALPROEX ER 500 MG TAB.ER.24H PO SCH (19:39)
[2019-03-02] MEDS: DIVALPROEX ER 250 MG TAB.ER.24H. PO SCH (19:39)
[2019-03-02 20:46] LABS: THYROXINE 4.6 ug/dL (4.5-12.0)
--- NOTE | 2019-03-02 22:10 | PDOC ---
Exam Note: Donato Note: Please also refer to the separate dictated note~for this date of service dictated separately. Discussed the patient with Nursing staff reviewed the chart.~Reviewed interim history and current functioning. Reviewed vital signs,~Labs/ Radiology~and current medications noted below. Continue current treatment with the changes noted in the dictated addendum note Assessment: Vital Signs/I&O: Vital Signs Date Time Temp Pulse Resp B/P (MAP) Pulse Ox O2 Delivery O2 Flow Rate FiO2 03/02/19 15:49 97.4 73 16 96/62 (73) 93 03/01/19 23:05 Room Air I & O 03/01/19 03/01/19 03/02/19 14:59 22:59 06:59 Intake Total 0 ml Balance 0 ml Labs: Laboratory Tests Test 03/02/19 07:09 White Blood Count 4.2 x10^3/uL (4.0-11.0) Red Blood Count 4.33 x10^6/uL (3.50-5.40) Hemoglobin 12.9 g/dL (12.0-15.5) Hematocrit 39.1 % (36.0-47.0) Mean Corpuscular Volume 90 fL (79-100) Mean Corpuscular Hemoglobin 30 pg (25-35) Mean Corpuscular Hemoglobin Concent 33 g/dL (31-37) Red Cell Distribution Width 12.9 % (11.5-14.5) Platelet Count 259 x10^3/uL (140-400) Neutrophils (%) (Auto) 56 % (31-73) Lymphocytes (%) (Auto) 32 % (24-48) Monocytes (%) (Auto) 7 % (0-9) Eosinophils (%) (Auto) 4 % (0-3) H Basophils (%) (Auto) 1 % (0-3) Neutrophils # (Auto) 2.4 x10^3uL (1.8-7.7) Lymphocytes # (Auto) 1.3 x10^3/uL (1.0-4.8) Monocytes # (Auto) 0.3 x10^3/uL (0.0-1.1) Eosinophils # (Auto) 0.2 x10^3/uL (0.0-0.7) Basophils # (Auto) 0.0 x10^3/uL (0.0-0.2) Sodium Level 137 mmol/L (136-145) Potassium Level 4.0 mmol/L (3.5-5.1) Chloride Level 103 mmol/L (98-107) Carbon Dioxide Level 27 mmol/L (21-32) Anion Gap 7 (6-14) Blood Urea Nitrogen 13 mg/dL (7-20) Creatinine 0.5 mg/dL (0.6-1.0) L Estimated GFR (Cockcroft-Gault) 120.0 BUN/Creatinine Ratio 26 (6-20) H Glucose Level 91 mg/dL (70-99) Calcium Level 8.6 mg/dL (8.5-10.1) Magnesium Level 2.1 mg/dL (1.8-2.4) Iron Level 49 ug/dL (50-170) L Total Iron Binding Capacity 253 ug/dL (250-450) Iron Saturation 19 % (15-34) Total Bilirubin 0.2 mg/dL (0.2-1.0) Aspartate Amino Transferase (AST) 22 U/L (15-37) Alanine Aminotransferase (ALT) 28 U/L (14-59) Alkaline Phosphatase 72 U/L (46-116) Total Protein 6.4 g/dL (6.4-8.2) Albumin 2.8 g/dL (3.4-5.0) L Albumin/Globulin Ratio 0.8 (1.0-1.7) L Triglycerides Level 85 mg/dL (0-150) Cholesterol Level 209 mg/dL (0-200) H LDL Cholesterol, Calculated 140 mg/dL (0-100) H VLDL Cholesterol, Calculated 17 mg/dL (0-40) Non-HDL Cholesterol Calculated 157 mg/dL (0-129) H HDL Cholesterol 52 mg/dL (40-60) Cholesterol/HDL Ratio 4.0 25-Hydroxy Vitamin D Total 42.0 ng/mL (30-100) Thyroid Stimulating Hormone (TSH) 3.590 uIU/mL (0.358-3.740) Thyroxine (T4) 4.6 ug/dL (4.5-12.0) Total Triiodothyronine (TT3) 87 ng/dL (71-180) Treponema pallidum Antibody Nonreactive (Nonreactive) Current Medications: Meds: Current Medications Medications (Trade) Dose Ordered Sig/Jabari Route PRN Reason Start Time Stop Time Status Last Admin Dose Admin Aripiprazole (Abilify) 10 mg DAILY PO 03/02/19 09:00 03/02/19 08:08 Divalproex Sodium (Depakote Er) 500 mg QHS PO 03/02/19 21:00 03/02/19 19:39 Divalproex Sodium (Depakote Er) 250 mg QHS PO 03/02/19 21:00 03/02/19 19:39 Non-Formulary Medication (Enzymes,Digestive (Enzymatic Digestant)) 1 each TIDAC PO 03/02/19 07:30 03/02/19 17:42 Magnesium Oxide (Magnesium Oxide) 400 mg BIDACLD PO 03/02/19 11:30 03/02/19 17:42 I have reviewed the current psychotropics carefully including drug interactions. Risk benefit ratio favors no change other than as noted in my dictated progress note. Diagnosis: Problems: (1) Anxiety disorder (2) Schizoaffective disorder, bipolar type (3) Psychosis, atypical (4) Mild cognitive impairment (5) Impulse control disorder NILSON OLIVARES MD Mar 02, 2019 22:10
[2019-03-02 23:08] LABS: HEMOGLOBIN A1C 5.7 % (4.8-5.6)
--- NOTE | 2019-03-02 23:46 | CONS ---
DATE OF CONSULTATION: 03/02/2019 REASON FOR CONSULTATION: Medical management. HISTORY OF PRESENT ILLNESS: This is a 78-year-old female patient whose took her against medical advice and within half an hour, he came back stating that he has made a big mistake. She continued to have behavioral disturbances that he is unable to deal with and was admitted to continue with inpatient psychiatric stabilization. She apparently was driving home with her when she started having severe anxiety and turned around to return to the Emergency Room. She reports that her left town and did not return for a few days. She has been experiencing anxiety for several years and has been in and out of [facility]; however, she denied any other complaint. She continued to have suicidal ideation, stating that she would hurt herself and she could, but she does not have access to anything to do it. She is too afraid to jump in front of a car. She also has some homicidal ideation stating that she wants to hurt her if she could and have tried before. She is having auditory hallucinations that tell her that she is a terrible person. She denies any visual hallucination. She was admitted to [facility] for inpatient psychiatric stabilization. PAST MEDICAL HISTORY: Significant for osteoarthritis, osteoporosis. She has had hip fracture in 2018 and wrist fracture in 2019. PSYCHIATRIC HISTORY: Significant for schizoaffective disorder, bipolar type. She apparently was admitted multiple times to [facility] in [place] for about 3 weeks and [facility]. She had a suicidal attempt in 2015. ALLERGIES: SHE IS ALLERGIC TO RISPERIDONE and ACID BLOCKERS. FAMILY HISTORY: Noncontributory. SOCIAL HISTORY: She is and lives with . She has 2 sons and 1 daughter. She used to work at [employer]. REVIEW OF SYSTEMS: As per history of present illness. MEDICATIONS: She is on following medications: Analgesic balm applied topically 4 times a day, Tylenol 650 mg every 6 hours, divalproex sodium 500 mg at bedtime, divalproex 150 mg at bedtime, aripiprazole for Abilify 10 mg daily, Advanced antacid liquid 15 mL 4 times a day, magnesium oxide 400 mg twice a day, milk of magnesia 30 mL p.o. daily p.r.n. for constipation and enzymatic digestive one 3 times a day before meals. PHYSICAL EXAMINATION: GENERAL: On examining her, she looked well and was clearly in no apparent respiratory distress. No pallor, jaundice, cyanosis, or thyromegaly. No jugular venous distension. No limb edema. VITAL SIGNS: Her heart rate was 81, blood pressure was 122/81, temperature was 98.4, respiratory rate was 18 and oxygen saturation was 95%. HEAD, EYES, EARS, NOSE AND THROAT: Normocephalic, atraumatic. NECK: Supple. HEART: Showed normal first and second heart sounds. No gallop, rub or murmur. CHEST: Clear to auscultation. No crepitation or rhonchi. ABDOMEN: Distended, soft, nontender. No guarding or rigidity. No organomegaly. All hernial orifice intact. Bowel sounds normal. NEUROLOGIC: She is awake, alert, responding appropriately. All cranial nerves intact. EXTREMITIES: She moves extremities without difficulty. LABORATORY DATA: On admission showed a white cell count of 4200, hemoglobin 12.9, hematocrit 39, MCV 90 and platelet count 259,000. Her chemistry showed a serum sodium 137, potassium 4, chloride 103, bicarbonate 27, anion gap of 7, BUN 13, creatinine 0.5, estimated GFR was 120 mL per minute. Her glucose was 91, calcium was 8.6, magnesium was 2.1. Serum iron was 49, TIBC was 253 and iron saturation was 19%. Total bilirubin, AST, ALT, alkaline phosphatase were normal. Her total protein was 6.4, albumin 2.8. Her serum triglycerides 75, total cholesterol was 209, LDL cholesterol 40, VLDL was 17, HDL cholesterol was 52 and the ratio was 4. Her 25-hydroxy vitamin D was 42 and TSH was normal at 3.59. Her urinalysis was essentially unremarkable. Toxic screen was negative and Treponema pallidum antibodies were nonreactive. ASSESSMENT AND PLAN: In summary, this is a 78-year-old female patient who left with her against medical advice, only to bring her back as she has severe anxiety and was seen in the Emergency Room and was [facility]. She apparently continued to have severe anxiety and psychosis. She continues to hear voices. Apparently, she has auditory hallucination that tells her she is a terrible person; however, she denied any visual hallucination. She is here to continue with inpatient psychiatric stabilization. Medically, she all in all seems to be very stable. I will follow all her lab work that are still pending and make any necessary recommendation. Thank you, Dr. Sullivan, for allowing me to participate in the care of this patient. SONY MOTA MD DR: AMALIA/kaitlin JOB#: [id number] / [id number]
[2019-03-03 06:28] VITALS: BP 122/80
[2019-03-03] MEDS: ARIPiprazole 10 MG TABLET PO SCH (07:44)
[2019-03-03] MEDS: MULTIZYME PO SCH ×3 (07:45→17:13)
[2019-03-03] MEDS: MAGNESIUM OXIDE 400 MG TABLET PO SCH ×2 (11:12→17:13)
--- NOTE | 2019-03-03 13:01 | HP ---
ADMIT DATE: 03/02/2019 PSYCHIATRIC ADMISSION HISTORY/EVALUATION This is late entry 03/02/2019. Covers elements not covered in my initial note. IDENTIFYING DATA: The patient is a 78-year-old female who was discharged against medical advice by her on 03/01/2019 while she was being stabilized for schizoaffective disorder, bipolar type, mixed with psychotic features on the [facility]. She had been started on Depakote and Abilify was being adjusted since the felt she was allergic to all other psychotropics. We were still not therapeutic on her psychotropics. She was still psychotic, actively hallucinating, but denied command hallucinations. The was insistent that this was all part of their baptist belief system and the agitation, aggression that she had manifested prompting the initial hospitalization was something in the past. He was adamant on discharging her against medical advice, but soon after he took her home on 03/01/2019, he called back saying he made a mistake. The patient was agitated with marked mood lability, psychotic and he brought her back for inpatient further stabilization. The patient does have a long history of bipolar disorder versus schizoaffective disorder, bipolar type mixed with psychotic features. PAST PSYCHIATRIC HISTORY: As above. MEDICAL HISTORY: Positive for status post hip fracture in June 2018, wrist fracture in October 2018. Past history of suicide attempts. ALLERGIES: RISPERIDONE and ACID BLOCKERS. CODE STATUS: Full code. DIET: Regular. Ambulates on her own. UA negative on 03/01/2019. CURRENT PSYCHOTROPICS: Abilify 10 mg a day, Depakote ER 500 mg at bedtime. FAMILY HISTORY: Noncontributory. SOCIAL HISTORY: The patient is , lives at home with her . No alcohol or drug abuse, physical, sexual or elder abuse. She is not known to be a perpetrator. MENTAL STATUS EXAMINATION: The patient was seen individually evening of 03/02/2019. She is reasonably oriented, quite withdrawn, spends much time in her room. Speech is coherent, has some latency, often responses monosyllabic. She is requesting intramuscular medications to stop the voices. Abstraction fair, computation impaired, language function intact, attention span short. No active suicidal or homicidal ideation, but she is quite psychotic. LABORATORY DATA: Reviewed. IMPRESSION: Schizoaffective disorder, bipolar type, mixed with psychotic features; anxiety disorder, unspecified; impulse control disorder, unspecified. Rest as above. PLAN: Admit to geropsychiatry unit at [facility]. I will see the patient daily individually from a psychiatric standpoint. Medical followup with Dr. Dunn. Continue current psychotropics. Check labs level on the Depakote, adjust to reach therapeutic level. Adjust Abilify as well. Further changes depending on how she responds to the initial changes. NILSON OLIVARES MD DR: KARINA/kaitlin JOB#: [id number] / [id number]
[2019-03-03 15:27] VITALS: BP 104/65
[2019-03-03] MEDS: DIVALPROEX ER 250 MG TAB.ER.24H. PO SCH (20:55)
[2019-03-03] MEDS: DIVALPROEX ER 500 MG TAB.ER.24H PO SCH (20:55)
[2019-03-03] MEDS: traZODone 50 MG TABLET. PO PRN ×2 (20:56→22:28)
--- NOTE | 2019-03-03 22:13 | PDOC ---
Exam Note: Donato Note: Please also refer to the separate dictated note~for this date of service dictated separately.~Patient seen individually. Discussed the patient with Nursing staff reviewed the chart.~Reviewed interim history and current functioning. Reviewed vital signs,~Labs/ Radiology~and current medications noted below. Continue current treatment with the changes noted in the dictated addendum note Assessment: Vital Signs/I&O: Vital Signs Date Time Temp Pulse Resp B/P (MAP) Pulse Ox O2 Delivery O2 Flow Rate FiO2 03/03/19 15:27 98.5 83 20 104/65 (78) 93 Room Air I & O 03/02/19 03/02/19 03/03/19 15:00 23:00 07:00 Intake Total 240 ml 360 ml 80 ml Balance 240 ml 360 ml 80 ml Current Medications: Meds: Current Medications Medications (Trade) Dose Ordered Sig/Jabari Route PRN Reason Start Time Stop Time Status Last Admin Dose Admin Trazodone HCl (Desyrel) 50 mg PRN QHS PRN PO INSOMNIA, MAY REPEAT X1 03/03/19 17:15 03/03/19 20:56 I have reviewed the current psychotropics carefully including drug interactions. Risk benefit ratio favors no change other than as noted in my dictated progress note. Diagnosis: Problems: (1) Anxiety disorder (2) Schizoaffective disorder, bipolar type (3) Psychosis, atypical (4) Mild cognitive impairment (5) Impulse control disorder NILSON OLIVARES MD Mar 03, 2019 22:13
[2019-03-04 06:14] VITALS: BP 114/66
[2019-03-04] MEDS: MULTIZYME PO SCH ×3 (07:30→16:30)
[2019-03-04 07:37] LABS: BASO % 1 % (0-3); EOS # 0.2 x10^3/uL (0.0-0.7); EOS % 5 % (0-3); HEMOGLOBIN 12.6 g/dL (12.0-15.5); LYMPH # 1.6 x10^3/uL (1.0-4.8); LYMPH % 40 % (24-48); MEAN CORPUSCULAR HEMOGLOBIN 30 pg (25-35); MEAN CORPUSCULAR HGB CONC 33 g/dL (31-37); MEAN CORPUSCULAR VOLUME 90 fL (79-100); MONO # 0.4 x10^3/uL (0.0-1.1); MONO % 10 % (0-9); NEUT # 1.8 x10^3uL (1.8-7.7); NEUT % 45 % (31-73); PLATELET COUNT 250 x10^3/uL (140-400); RED BLOOD COUNT 4.22 x10^6/uL (3.50-5.40); WHITE BLOOD COUNT 4.1 x10^3/uL (4.0-11.0)
[2019-03-04 07:39] LABS: ALBUMIN 2.8 g/dL (3.4-5.0); ALBUMIN/GLOBULIN RATIO 0.8 (1.0-1.7); ALK PHOS 76 U/L (46-116); ALT (SGPT) 36 U/L (14-59); ANION GAP 5 (6-14); AST (SGOT) 32 U/L (15-37); BLOOD UREA NITROGEN 13 mg/dL (7-20); BUN/CREATININE RATIO 26 (6-20); CALCIUM 8.8 mg/dL (8.5-10.1); CARBON DIOXIDE 29 mmol/L (21-32); CHLORIDE 104 mmol/L (98-107); CREATININE 0.5 mg/dL (0.6-1.0); GLUCOSE 90 mg/dL (70-99); POTASSIUM 4.1 mmol/L (3.5-5.1); SODIUM 138 mmol/L (136-145); TOTAL BILIRUBIN 0.2 mg/dL (0.2-1.0); TOTAL PROTEIN 6.4 g/dL (6.4-8.2)
[2019-03-04 07:44] LABS: VAL ACID 51 mcg/mL (50-100)
[2019-03-04] MEDS: MAGNESIUM OXIDE 400 MG TABLET PO SCH ×2 (07:48→16:39)
[2019-03-04] MEDS: ARIPiprazole 10 MG TABLET PO SCH (10:23)
[2019-03-04 15:56] VITALS: BP 104/60
[2019-03-04] MEDS: DIVALPROEX ER 500 MG TAB.ER.24H PO SCH (20:00)
[2019-03-04] MEDS: DIVALPROEX ER 250 MG TAB.ER.24H. PO SCH (20:00)
[2019-03-04] MEDS: traZODone 50 MG TABLET. PO PRN (20:03)
[2019-03-05 06:13] VITALS: BP 102/54
[2019-03-05] MEDS: MULTIZYME PO SCH ×3 (07:30→16:30)
[2019-03-05] MEDS: ARIPiprazole 10 MG TABLET PO SCH (07:53)
--- NOTE | 2019-03-05 10:10 | PDOC ---
Exam Note: Donato Note: Late entry for DOS 03/04/2019. Please also refer to the separate dictated note~for this date of service dictated separately.~Patient seen individually. Discussed the patient with Nursing staff reviewed the chart.~Reviewed interim history and current functioning. Reviewed vital signs,~Labs/ Radiology~and current medications noted below. Continue current treatment with the changes noted in the dictated addendum note Assessment: Vital Signs/I&O: Vital Signs Date Time Temp Pulse Resp B/P (MAP) Pulse Ox O2 Delivery O2 Flow Rate FiO2 03/05/19 06:13 97.4 78 14 102/54 (70) 97 Room Air I & O 03/04/19 03/04/19 03/05/19 14:59 22:59 06:59 Intake Total 480 ml 240 ml 0 ml Balance 480 ml 240 ml 0 ml Current Medications: I have reviewed the current psychotropics carefully including drug interactions. Risk benefit ratio favors no change other than as noted in my dictated progress note. Diagnosis: Problems: (1) Anxiety disorder (2) Schizoaffective disorder, bipolar type (3) Psychosis, atypical (4) Mild cognitive impairment (5) Impulse control disorder NILSON OLIVARES MD Mar 05, 2019 10:10
--- NOTE | 2019-03-05 11:26 | PN ---
DATE: 03/03/2019 This late entry, 03/03/2019, covers elements not covered in my initial note. SUBJECTIVE: I met with the patient evening of 03/03/2019. The patient slept 10 hours previous night. She has been somewhat withdrawn to her room previous night, compliant with medications, did come out for some groups during the day on 03/03/2019. We will check CBC, CMP, valproic acid level in the morning of 03/04/2019. Despite the 10 hours noted for sleep, nursing staff state in fact, she was quite restless all night for sleep. REVIEW OF SYSTEMS: Positive for some tiredness. No CV, , pulmonary, eye system symptoms on review. MENTAL STATUS EXAM: Reasonably oriented. Speech has some latency, coherent. Abstraction fair, computation impaired, language function intact, attention span short. She does admit to ongoing passive auditory hallucinations with no command hallucinations. No suicidal ideation. LABORATORY DATA: Reviewed. IMPRESSION: Unchanged from initial note. PLAN: Increase Abilify from 10 mg a day to 15 mg a day. Check labs as above. Start trazodone 50 mg at bedtime p.r.n., may repeat x 1 for insomnia due to her restless sleep. Rest unchanged for now. NILSON OLIVARES MD DR: KARINA/kaitlin JOB#: [id number] / [id number]
[2019-03-05] MEDS: MAGNESIUM OXIDE 400 MG TABLET PO SCH ×2 (12:10→17:16)
[2019-03-05 15:51] VITALS: BP 146/80
[2019-03-05] MEDS: DIVALPROEX ER 250 MG TAB.ER.24H. PO SCH (20:11)
[2019-03-05] MEDS: DIVALPROEX ER 500 MG TAB.ER.24H PO SCH (20:11)
--- NOTE | 2019-03-05 22:05 | PN ---
DATE: 03/04/2019 PSYCHIATRIC PROGRESS NOTE. This late entry, 03/04/2019 covers the elements not covered in my initial note. SUBJECTIVE: I met with the patient in the evening of 03/04/2019, staffed at a treatment team meeting with the entire team morning of 03/04/2019. We tried to get the patient's to join in the treatment team as he was scheduled to but he was unavailable. The patient is sleeping about 6-1/2 hours. Appetite 100%, remains isolative in her room. She still has auditory hallucinations, denies command hallucinations. UA was contaminated, will be repeated. Valproic acid level on 03/04/2019 is 51. REVIEW OF SYSTEMS: Positive for tiredness. No CV, , pulmonary, eye, ENT system symptoms on review. MENTAL STATUS EXAM: Oriented to herself and situation. Speech has some latency, coherent. Abstraction fair, computation impaired, language function intact, attention span short. Mood and affect remains somewhat withdrawn. LABORATORY DATA: Reviewed. IMPRESSION: Schizoaffective disorder, bipolar type, mixed with psychotic features, in partial remission. Rest unchanged. PLAN: Continue current psychotropics. Depakote along with Abilify 15 mg a day, but we may need to increase this further in due course. MAN Bam OLIVARES MD DR: KARINA/kaitlin JOB#: [id number] / [id number]
--- NOTE | 2019-03-05 22:16 | PDOC ---
Exam Note: Donato Note: Please also refer to the separate dictated note~for this date of service dictated separately.~Patient seen individually. Discussed the patient with Nursing staff reviewed the chart.~Reviewed interim history and current functioning. Reviewed vital signs,~Labs/ Radiology~and current medications noted below. Continue current treatment with the changes noted in the dictated addendum note Assessment: Vital Signs/I&O: Vital Signs Date Time Temp Pulse Resp B/P (MAP) Pulse Ox O2 Delivery O2 Flow Rate FiO2 03/05/19 15:51 98.0 80 16 146/80 (102) 96 03/05/19 06:13 Room Air I & O 03/04/19 03/04/19 03/05/19 14:59 22:59 06:59 Intake Total 480 ml 240 ml 0 ml Balance 480 ml 240 ml 0 ml Current Medications: I have reviewed the current psychotropics carefully including drug interactions. Risk benefit ratio favors no change other than as noted in my dictated progress note. Diagnosis: Problems: (1) Anxiety disorder (2) Schizoaffective disorder, bipolar type (3) Psychosis, atypical (4) Mild cognitive impairment (5) Impulse control disorder NILSON OLIVARES MD Mar 05, 2019 22:15
[2019-03-06 05:49] VITALS: BP 134/83
[2019-03-06] MEDS: MULTIZYME PO SCH ×3 (07:42→16:22)
[2019-03-06] MEDS: ARIPiprazole 10 MG TABLET PO SCH (07:43)
[2019-03-06] MEDS: MAGNESIUM OXIDE 400 MG TABLET PO SCH ×2 (07:44→16:20)
[2019-03-06 15:36] VITALS: BP 98/58
[2019-03-06] MEDS: DIVALPROEX ER 250 MG TAB.ER.24H. PO SCH (19:31)
[2019-03-06] MEDS: DIVALPROEX ER 500 MG TAB.ER.24H PO SCH (19:31)
[2019-03-06] MEDS: MIRTAZAPINE 7.5 MG TABLET. PO SCH (20:25)
--- NOTE | 2019-03-06 22:37 | PDOC ---
Exam Note: Donato Note: Please also refer to the separate dictated note~for this date of service dictated separately.~Patient seen individually. Discussed the patient with Nursing staff reviewed the chart.~Reviewed interim history and current functioning. Reviewed vital signs,~Labs/ Radiology~and current medications noted below. Continue current treatment with the changes noted in the dictated addendum note Assessment: Vital Signs/I&O: Vital Signs Date Time Temp Pulse Resp B/P (MAP) Pulse Ox O2 Delivery O2 Flow Rate FiO2 03/06/19 15:36 97.7 78 16 98/58 (71) 98 Room Air I & O 03/05/19 03/05/19 03/06/19 14:59 22:59 06:59 Intake Total 600 ml 360 ml Balance 600 ml 360 ml Current Medications: Meds: Current Medications Medications (Trade) Dose Ordered Sig/Jabari Route PRN Reason Start Time Stop Time Status Last Admin Dose Admin Mirtazapine (Remeron) 7.5 mg QHS PO 03/06/19 21:00 03/06/19 20:25 I have reviewed the current psychotropics carefully including drug interactions. Risk benefit ratio favors no change other than as noted in my dictated progress note. Diagnosis: Problems: (1) Anxiety disorder (2) Schizoaffective disorder, bipolar type (3) Psychosis, atypical (4) Mild cognitive impairment (5) Impulse control disorder NILSON OLIVARES MD Mar 06, 2019 22:37
[2019-03-07 05:45] VITALS: BP 94/59
[2019-03-07] MEDS: MULTIZYME PO SCH ×3 (07:49→17:23)
[2019-03-07] MEDS ORDERED: ARIPiprazole 10 MG TABLET PO SCH (09:00)
[2019-03-07] MEDS: MAGNESIUM OXIDE 400 MG TABLET PO SCH ×2 (11:40→17:23)
--- NOTE | 2019-03-07 12:39 | PN ---
DATE: 03/05/2019 PSYCHIATRIC PROGRESS NOTE This late entry, 03/05/2019, covers elements not covered in my initial note. SUBJECTIVE: I met with the patient in the evening in her room. She remains withdrawn, spends much time in her room, isolative. States she slept poorly, though nursing staff documented 9 hours plus. 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 She still admits to ongoing auditory hallucinations. No command hallucinations, but just commenting on her. REVIEW OF SYSTEMS: No CV, , pulmonary, eye, ENT system symptoms on review. MENTAL STATUS EXAM: Reasonably oriented. Speech is coherent, abstraction fair, computation impaired, language function intact, attention span short. Mood and affect somewhat withdrawn. LABORATORY DATA: Reviewed. IMPRESSION: Unchanged from initial note. PLAN: Continue current psychotropics. Valproic acid level therapeutic at 51. May need to increase Abilify further. Continue Depakote ER at current dosage, trazodone. If insomnia persists, we may need to add Remeron. We will reassess in 24 hours or so. MAN Bam OLIVARES MD DR: KARINA/kaitlin JOB#: [id number] / [id number]
[2019-03-07 16:00] VITALS: BP 96/61
[2019-03-07] MEDS: DIVALPROEX ER 500 MG TAB.ER.24H PO SCH (19:42)
[2019-03-07] MEDS: traZODone 50 MG TABLET. PO PRN (19:42)
[2019-03-07] MEDS: MIRTAZAPINE 7.5 MG TABLET. PO SCH (19:43)
[2019-03-07] MEDS: DIVALPROEX ER 250 MG TAB.ER.24H. PO SCH (19:43)
[2019-03-07] MEDS: ZIPRASIDONE 20 MG CAPSULE. PO SCH (19:44)
--- NOTE | 2019-03-07 22:13 | PDOC ---
Exam Note: Donato Note: Please also refer to the separate dictated note~for this date of service dictated separately.~Patient seen individually. Discussed the patient with Nursing staff reviewed the chart.~Reviewed interim history and current functioning. Reviewed vital signs,~Labs/ Radiology~and current medications noted below. Continue current treatment with the changes noted in the dictated addendum note Assessment: Vital Signs/I&O: Vital Signs Date Time Temp Pulse Resp B/P (MAP) Pulse Ox O2 Delivery O2 Flow Rate FiO2 03/07/19 16:00 97.1 75 20 96/61 (73) 93 03/07/19 05:45 Room Air I & O 03/06/19 03/06/19 03/07/19 14:59 22:59 06:59 Intake Total 720 ml 360 ml 0 ml Balance 720 ml 360 ml 0 ml Current Medications: Meds: Current Medications Medications (Trade) Dose Ordered Sig/Jabari Route PRN Reason Start Time Stop Time Status Last Admin Dose Admin Aripiprazole (Abilify) 20 mg DAILY PO 03/07/19 09:00 03/07/19 18:41 DC 03/07/19 07:50 Ziprasidone (Geodon) 20 mg BID PO 03/07/19 21:00 03/07/19 19:44 I have reviewed the current psychotropics carefully including drug interactions. Risk benefit ratio favors no change other than as noted in my dictated progress note. Diagnosis: Problems: (1) Anxiety disorder (2) Schizoaffective disorder, bipolar type (3) Psychosis, atypical (4) Mild cognitive impairment (5) Impulse control disorder NILSON OLIVARES MD Mar 07, 2019 22:13
[2019-03-08 05:56] VITALS: BP 118/79
[2019-03-08] MEDS: MULTIZYME PO SCH ×3 (07:39→17:29)
[2019-03-08] MEDS: ZIPRASIDONE 20 MG CAPSULE. PO SCH ×2 (07:39→19:46)
[2019-03-08] MEDS: MAGNESIUM OXIDE 400 MG TABLET PO SCH ×2 (12:21→17:20)
[2019-03-08 16:03] VITALS: BP 110/70
[2019-03-08] MEDS: MIRTAZAPINE 7.5 MG TABLET. PO SCH (19:46)
[2019-03-08] MEDS: DIVALPROEX ER 250 MG TAB.ER.24H. PO SCH (19:46)
[2019-03-08] MEDS: DIVALPROEX ER 500 MG TAB.ER.24H PO SCH (19:46)
[2019-03-08] MEDS: traZODone 50 MG TABLET. PO PRN (19:47)
--- NOTE | 2019-03-08 22:20 | PDOC ---
Exam Note: Donato Note: Please also refer to the separate dictated note~for this date of service dictated separately.~Patient seen individually. Discussed the patient with Nursing staff reviewed the chart.~Reviewed interim history and current functioning. Reviewed vital signs,~Labs/ Radiology~and current medications noted below. Continue current treatment with the changes noted in the dictated addendum note Assessment: Vital Signs/I&O: Vital Signs Date Time Temp Pulse Resp B/P (MAP) Pulse Ox O2 Delivery O2 Flow Rate FiO2 03/08/19 16:03 97.5 69 18 110/70 (83) 99 03/07/19 05:45 Room Air I & O 03/07/19 03/07/19 03/08/19 15:00 23:00 07:00 Intake Total 720 ml 480 ml Balance 720 ml 480 ml Current Medications: I have reviewed the current psychotropics carefully including drug interactions. Risk benefit ratio favors no change other than as noted in my dictated progress note. Diagnosis: Problems: (1) Anxiety disorder (2) Schizoaffective disorder, bipolar type (3) Psychosis, atypical (4) Mild cognitive impairment (5) Impulse control disorder NILSON OLIVARES MD Mar 08, 2019 22:20
--- NOTE | 2019-03-09 00:14 | PN ---
DATE: 03/06/2019 PSYCHIATRIC PROGRESS NOTE This late entry 03/06/2019 covers elements not covered in my initial note. SUBJECTIVE: I met with the patient in the evening of 03/06/2019. The patient slept 8-3/4 hours previous night. She remains isolative in her room, but cooperative. Subjectively, states she does not sleep at night just keeps her eyes closed and has counted as that she is sleeping. She has been withdrawn, still has the auditory hallucinations. REVIEW OF SYSTEMS: No CV, , pulmonary, eye, ENT system symptoms on review. MENTAL STATUS EXAM: Oriented to herself and situation. Speech is coherent, has some latency. Abstraction fair, computation impaired, and language function intact. Mood and affect remains withdrawn. LABORATORY DATA: Reviewed. IMPRESSION: Unchanged from initial note. PLAN: Start Remeron 7.5 mg at bedtime, increase Abilify from 15 to 20 mg a day. Continue rest unchanged. Consider changing Abilify to Geodon, if psychotic symptoms persist. MAN Bam OLIVARES MD DR: KARINA/kaitlin JOB#: [id number] / [id number]
[2019-03-09 06:18] VITALS: BP 106/68
[2019-03-09] MEDS: MULTIZYME PO SCH ×3 (08:14→17:23)
[2019-03-09] MEDS: ZIPRASIDONE 20 MG CAPSULE. PO SCH ×2 (08:14→20:35)
[2019-03-09] MEDS: MAGNESIUM OXIDE 400 MG TABLET PO SCH ×2 (12:05→17:23)
[2019-03-09 16:05] VITALS: BP 99/60
[2019-03-09] MEDS: DIVALPROEX ER 250 MG TAB.ER.24H. PO SCH (20:36)
[2019-03-09] MEDS: DIVALPROEX ER 500 MG TAB.ER.24H PO SCH (20:36)
[2019-03-09] MEDS: MIRTAZAPINE 7.5 MG TABLET. PO SCH (20:36)
[2019-03-09] MEDS: traZODone 50 MG TABLET. PO PRN (20:39)
[2019-03-09] MEDS: MAGNESIUM HYDROXIDE 2,400 MG/30 ML ORAL.SUSP. PO PRN (20:48)
--- NOTE | 2019-03-09 22:06 | PDOC ---
Exam Note: Donato Note: Please also refer to the separate dictated note~for this date of service dictated separately.~Patient seen individually. Discussed the patient with Nursing staff reviewed the chart.~Reviewed interim history and current functioning. Reviewed vital signs,~Labs/ Radiology~and current medications noted below. Continue current treatment with the changes noted in the dictated addendum note Assessment: Vital Signs/I&O: Vital Signs Date Time Temp Pulse Resp B/P (MAP) Pulse Ox O2 Delivery O2 Flow Rate FiO2 03/09/19 16:05 97.6 74 19 99/60 (73) 96 03/07/19 05:45 Room Air I & O 03/08/19 03/08/19 03/09/19 14:59 22:59 06:59 Intake Total 480 ml 240 ml Balance 480 ml 240 ml Current Medications: I have reviewed the current psychotropics carefully including drug interactions. Risk benefit ratio favors no change other than as noted in my dictated progress note. Diagnosis: Problems: (1) Anxiety disorder (2) Schizoaffective disorder, bipolar type (3) Psychosis, atypical (4) Mild cognitive impairment (5) Impulse control disorder NILSON OLIVARES MD Mar 09, 2019 22:06
--- NOTE | 2019-03-09 23:48 | PN ---
DATE: 03/07/2019 PSYCHIATRIC PROGRESS NOTE This late entry 03/07 covers elements not covered in my initial note. SUBJECTIVE: I met with the patient in the evening of 03/07. The patient slept 10 hours previous night. She has had intermittent hallucinations, spends much time in her room. Her significant other visited her and I met with him at some length together with the patient evening of 03/08. Appetite has been increased since she started on Abilify. EKG, QTC interval is unremarkable and I had done this as workup prior to changing Abilify to Geodon for her psychosis. REVIEW OF SYSTEMS: No CV, , pulmonary, eye system symptoms on review. Does admit to tiredness, complains of insomnia. MENTAL STATUS EXAM: Oriented to herself and situation. Speech has some latency, coherent. Abstraction fair, computation impaired, language function intact, attention span short. Mood and affect remain somewhat withdrawn. LABORATORY DATA: Reviewed. IMPRESSION: Unchanged from initial note. PLAN: The patient seems to have failed Abilify 20 mg a day. We will change to Geodon 20 mg twice a day. QTC interval is unremarkable. Rest unchanged for now. MAN Bam OLIVARES MD DR: KARINA/kaitlin JOB#: [id number] / [id number]
--- NOTE | 2019-03-10 00:08 | PN ---
DATE: 03/08/2019 PSYCHIATRIC PROGRESS NOTE This late entry 03/08/2019, covers elements not covered in my initial note. SUBJECTIVE: I met with the patient in the evening of 03/08/2019. The patient slept 8-1/4 hours previous night. Previous night, she was in the day room, quiet, somewhat anxious, refused to come out of her room in the morning of 03/08/2019. Later, she joined the groups. She slept on the couch and Geodon has been started. REVIEW OF SYSTEMS: Positive for some tiredness. No CV, , pulmonary, eye, ENT system symptoms on review. MENTAL STATUS EXAM: Oriented to herself and situation. Speech is coherent, often responses monosyllabic. Abstraction fair, computation impaired, language function intact, attention span short. Mood and affect is withdrawn. LABORATORY DATA: Reviewed. Valproic acid level is therapeutic. IMPRESSION: Unchanged from initial note. PLAN: Initiate the Geodon 20 mg twice a day. Continue rest unchanged for now. NILSON OLIVARES MD DR: KARINA/kaitlin JOB#: [id number] / [id number]
[2019-03-10 06:30] VITALS: BP 108/71
[2019-03-10] MEDS: MULTIZYME PO SCH ×3 (07:30→15:59)
[2019-03-10] MEDS: ZIPRASIDONE 40 MG CAPSULE. PO SCH ×2 (08:03→21:11)
[2019-03-10] MEDS: MAGNESIUM OXIDE 400 MG TABLET PO SCH ×2 (11:16→15:59)
[2019-03-10 15:35] VITALS: BP 129/67
[2019-03-10] MEDS: SENNOSIDES/DOCUSATE 8.6/50MG TABLET. PO PRN (18:28)
[2019-03-10] MEDS ORDERED: SODIUM PHOSPHATES 19/7GM 133 ML ENEMA. PR ONE (18:30)
[2019-03-10] MEDS: DIVALPROEX ER 500 MG TAB.ER.24H PO SCH (21:11)
[2019-03-10] MEDS: MIRTAZAPINE 7.5 MG TABLET. PO SCH (21:11)
[2019-03-10] MEDS: DIVALPROEX ER 250 MG TAB.ER.24H. PO SCH (21:11)
[2019-03-10] MEDS: DOCUSATE SODIUM 100 MG CAPSULE PO SCH (21:12)
--- NOTE | 2019-03-10 22:10 | PDOC ---
Exam Note: Donato Note: Please also refer to the separate dictated note~for this date of service dictated separately.~Patient seen individually. Discussed the patient with Nursing staff reviewed the chart.~Reviewed interim history and current functioning. Reviewed vital signs,~Labs/ Radiology~and current medications noted below. Continue current treatment with the changes noted in the dictated addendum note Assessment: Vital Signs/I&O: Vital Signs Date Time Temp Pulse Resp B/P (MAP) Pulse Ox O2 Delivery O2 Flow Rate FiO2 03/10/19 15:35 98.6 86 16 129/67 (87) 92 03/07/19 05:45 Room Air I & O 03/09/19 03/09/19 03/10/19 15:00 23:00 07:00 Intake Total 480 ml 240 ml 120 ml Balance 480 ml 240 ml 120 ml Current Medications: Meds: Current Medications Medications (Trade) Dose Ordered Sig/Jabari Route PRN Reason Start Time Stop Time Status Last Admin Dose Admin Ziprasidone (Geodon) 40 mg BID PO 03/10/19 09:00 03/10/19 21:11 Docusate Sodium (Colace) 100 mg BID PO 03/10/19 21:00 03/10/19 21:12 Senna/Docusate Sodium (Senna Plus) 1 tab PRN DAILY PRN PO CONSTIPATION 03/10/19 18:30 03/10/19 18:28 Sodium Biphosphate/ Sodium Phosphate (Fleet Adult) 133 ml 1X ONCE UT 03/10/19 18:30 03/10/19 18:31 DC 03/10/19 18:28 I have reviewed the current psychotropics carefully including drug interactions. Risk benefit ratio favors no change other than as noted in my dictated progress note. Diagnosis: Problems: (1) Anxiety disorder (2) Schizoaffective disorder, bipolar type (3) Psychosis, atypical (4) Mild cognitive impairment (5) Impulse control disorder NILSON OLIVARES MD Mar 10, 2019 22:10
[2019-03-11 06:01] VITALS: BP 98/67
[2019-03-11] MEDS: MULTIZYME PO SCH ×3 (07:30→16:13)
[2019-03-11] MEDS: DOCUSATE SODIUM 100 MG CAPSULE PO SCH ×2 (08:06→19:28)
[2019-03-11] MEDS: ZIPRASIDONE 40 MG CAPSULE. PO SCH ×2 (08:07→19:28)
[2019-03-11] MEDS: MAGNESIUM OXIDE 400 MG TABLET PO SCH ×2 (08:07→16:13)
[2019-03-11 09:30] LABS: BASO % 1 % (0-3); EOS # 0.2 x10^3/uL (0.0-0.7); EOS % 4 % (0-3); HEMATOCRIT 36.8 % (36.0-47.0); LYMPH # 1.5 x10^3/uL (1.0-4.8); LYMPH % 32 % (24-48); MEAN CORPUSCULAR HEMOGLOBIN 29 pg (25-35); MEAN CORPUSCULAR HGB CONC 33 g/dL (31-37); MEAN CORPUSCULAR VOLUME 90 fL (79-100); MONO # 0.3 x10^3/uL (0.0-1.1); MONO % 7 % (0-9); NEUT # 2.7 x10^3uL (1.8-7.7); NEUT % 57 % (31-73); PLATELET COUNT 224 x10^3/uL (140-400); RED BLOOD COUNT 4.09 x10^6/uL (3.50-5.40); RED CELL DISTRIBUTION WIDTH 13.1 % (11.5-14.5); WHITE BLOOD COUNT 4.7 x10^3/uL (4.0-11.0)
[2019-03-11 09:42] LABS: ALBUMIN 2.7 g/dL (3.4-5.0); ALBUMIN/GLOBULIN RATIO 0.8 (1.0-1.7); CALCIUM 8.6 mg/dL (8.5-10.1); CREATININE 0.6 mg/dL (0.6-1.0); GFR 97.2; POTASSIUM 4.1 mmol/L (3.5-5.1); TOTAL BILIRUBIN 0.2 mg/dL (0.2-1.0); TOTAL PROTEIN 6.2 g/dL (6.4-8.2)
--- NOTE | 2019-03-11 13:10 | PN ---
DATE: 03/09/2019 PSYCHIATRIC PROGRESS NOTE This late entry 03/09/2019 covers elements not covered in my initial note. SUBJECTIVE: I met with the patient in the evening of 03/09/2019 in her room at some length. The patient slept 9-1/2 hours previous night per nursing report, but she states she is up most of the night, just keeps her eyes closed. Staff is not able to verify this. She came out of her room to the dayroom after breakfast and then after lunch and then back to the room. She still admits to ongoing auditory hallucinations. REVIEW OF SYSTEMS: No CV, , pulmonary, eye, ENT system symptoms on review. Reliability fair. MENTAL STATUS EXAM: Oriented to herself and situation. Speech is coherent, has some latency. Abstraction fair, computation impaired, language function intact, attention span short. Mood and affect withdrawn. LABORATORY DATA: Reviewed. IMPRESSION: Unchanged from initial note. PLAN: No change from initial note, but we will go ahead and increase the Geodon to 40 mg twice a day starting 03/10/2019 on account of her ongoing psychosis. NILSON OLIVARES MD DR: KARINA/kaitlin JOB#: [id number] / [id number]
[2019-03-11 16:17] VITALS: BP 112/71
[2019-03-11] MEDS: MIRTAZAPINE 7.5 MG TABLET. PO SCH (19:28)
[2019-03-11] MEDS: DIVALPROEX ER 500 MG TAB.ER.24H PO SCH (19:28)
[2019-03-11] MEDS: DIVALPROEX ER 250 MG TAB.ER.24H. PO SCH (19:28)
[2019-03-11] MEDS: traZODone 50 MG TABLET. PO PRN (20:20)
--- NOTE | 2019-03-11 22:20 | PDOC ---
Exam Note: Donato Note: Please also refer to the separate dictated note~for this date of service dictated separately.~Patient seen individually. Discussed the patient with Nursing staff reviewed the chart.~Reviewed interim history and current functioning. Reviewed vital signs,~Labs/ Radiology~and current medications noted below. Continue current treatment with the changes noted in the dictated addendum note Assessment: Vital Signs/I&O: Vital Signs Date Time Temp Pulse Resp B/P (MAP) Pulse Ox O2 Delivery O2 Flow Rate FiO2 03/11/19 16:17 98.1 74 16 112/71 (85) 95 Room Air I & O 03/10/19 03/10/19 03/11/19 15:00 23:00 07:00 Intake Total 720 ml 480 ml Balance 720 ml 480 ml Labs: Laboratory Tests Test 03/11/19 09:08 White Blood Count 4.7 x10^3/uL (4.0-11.0) Red Blood Count 4.09 x10^6/uL (3.50-5.40) Hemoglobin 12.0 g/dL (12.0-15.5) Hematocrit 36.8 % (36.0-47.0) Mean Corpuscular Volume 90 fL (79-100) Mean Corpuscular Hemoglobin 29 pg (25-35) Mean Corpuscular Hemoglobin Concent 33 g/dL (31-37) Red Cell Distribution Width 13.1 % (11.5-14.5) Platelet Count 224 x10^3/uL (140-400) Neutrophils (%) (Auto) 57 % (31-73) Lymphocytes (%) (Auto) 32 % (24-48) Monocytes (%) (Auto) 7 % (0-9) Eosinophils (%) (Auto) 4 % (0-3) H Basophils (%) (Auto) 1 % (0-3) Neutrophils # (Auto) 2.7 x10^3uL (1.8-7.7) Lymphocytes # (Auto) 1.5 x10^3/uL (1.0-4.8) Monocytes # (Auto) 0.3 x10^3/uL (0.0-1.1) Eosinophils # (Auto) 0.2 x10^3/uL (0.0-0.7) Basophils # (Auto) 0.0 x10^3/uL (0.0-0.2) Sodium Level 134 mmol/L (136-145) L Potassium Level 4.1 mmol/L (3.5-5.1) Chloride Level 99 mmol/L (98-107) Carbon Dioxide Level 27 mmol/L (21-32) Anion Gap 8 (6-14) Blood Urea Nitrogen 13 mg/dL (7-20) Creatinine 0.6 mg/dL (0.6-1.0) Estimated GFR (Cockcroft-Gault) 97.2 BUN/Creatinine Ratio 22 (6-20) H Glucose Level 117 mg/dL (70-99) H Calcium Level 8.6 mg/dL (8.5-10.1) Total Bilirubin 0.2 mg/dL (0.2-1.0) Aspartate Amino Transferase (AST) 25 U/L (15-37) Alanine Aminotransferase (ALT) 32 U/L (14-59) Alkaline Phosphatase 73 U/L (46-116) Total Protein 6.2 g/dL (6.4-8.2) L Albumin 2.7 g/dL (3.4-5.0) L Albumin/Globulin Ratio 0.8 (1.0-1.7) L Current Medications: I have reviewed the current psychotropics carefully including drug interactions. Risk benefit ratio favors no change other than as noted in my dictated progress note. Diagnosis: Problems: (1) Anxiety disorder (2) Schizoaffective disorder, bipolar type (3) Psychosis, atypical (4) Mild cognitive impairment (5) Impulse control disorder NILSON OLIVARES MD Mar 11, 2019 22:20
[2019-03-12 06:10] VITALS: BP 102/67
[2019-03-12] MEDS: MULTIZYME PO SCH ×3 (07:30→16:07)
[2019-03-12] MEDS: DOCUSATE SODIUM 100 MG CAPSULE PO SCH ×2 (08:16→19:34)
[2019-03-12] MEDS: ZIPRASIDONE 40 MG CAPSULE. PO SCH ×2 (08:16→19:35)
[2019-03-12] MEDS: MAGNESIUM OXIDE 400 MG TABLET PO SCH ×2 (11:51→16:06)
[2019-03-12 16:21] VITALS: BP 103/67
[2019-03-12] MEDS: MIRTAZAPINE 7.5 MG TABLET. PO SCH (19:34)
[2019-03-12] MEDS: DIVALPROEX ER 250 MG TAB.ER.24H. PO SCH (19:34)
[2019-03-12] MEDS: DIVALPROEX ER 500 MG TAB.ER.24H PO SCH (19:35)
[2019-03-12] MEDS: traZODone 50 MG TABLET. PO PRN (20:39)
--- NOTE | 2019-03-12 22:17 | PDOC ---
Exam Note: Donato Note: Please also refer to the separate dictated note~for this date of service dictated separately.~Patient seen individually. Discussed the patient with Nursing staff reviewed the chart.~Reviewed interim history and current functioning. Reviewed vital signs,~Labs/ Radiology~and current medications noted below. Continue current treatment with the changes noted in the dictated addendum note Assessment: Vital Signs/I&O: Vital Signs Date Time Temp Pulse Resp B/P (MAP) Pulse Ox O2 Delivery O2 Flow Rate FiO2 03/12/19 16:21 97.7 69 18 103/67 (79) 94 03/12/19 06:10 Room Air I & O 03/11/19 03/11/19 03/12/19 14:59 22:59 06:59 Intake Total 480 ml 240 ml 120 ml Balance 480 ml 240 ml 120 ml Current Medications: Meds: Current Medications Medications (Trade) Dose Ordered Sig/Jabari Route PRN Reason Start Time Stop Time Status Last Admin Dose Admin Olanzapine (ZyPREXA ZYDIS) 2.5 mg PRN Q2HR PRN PO PSYCHOSIS 03/12/19 17:00 03/12/19 17:01 I have reviewed the current psychotropics carefully including drug interactions. Risk benefit ratio favors no change other than as noted in my dictated progress note. Diagnosis: Problems: (1) Anxiety disorder (2) Schizoaffective disorder, bipolar type (3) Psychosis, atypical (4) Mild cognitive impairment (5) Impulse control disorder NILSON OLIVARES MD Mar 12, 2019 22:17
--- NOTE | 2019-03-13 00:16 | PN ---
DATE: 03/11/2019 PSYCHIATRIC PROGRESS NOTE This late entry, 03/11, covers elements not covered in my initial note. SUBJECTIVE: I met with the patient evening of 03/11 and staffed treatment team meeting with the entire team in the morning. The patient slept 7-1/4 hours, average 8-1/2 hours. Appetite 100%. We tried to have her , Cheryl, attend the conference, but he was unavailable. Valproic acid level is therapeutic at 51 on the . She continues to complain subjectively of having auditory hallucinations and has had some constipation, which we will address symptomatically. We will check an EKG as we are gradually increasing the Geodon, currently at 40 mg b.i.d. Discussed about the patient's involvement with the [facility] post-discharge. REVIEW OF SYSTEMS: Positive for constipation and withdrawal. No CV, , pulmonary, eye system symptoms on review. MENTAL STATUS EXAM: Oriented to herself and situation. Speech has some latency, coherent. Abstraction fair, computation impaired, language function intact, attention span short. Mood and affect somewhat withdrawn. LABORATORY DATA: Reviewed. IMPRESSION: Unchanged from initial note. PLAN: No change from initial note. Check EKG. Increase Geodon gradually further, maintain rest as clinically indicated for now. NILSON OLIVARES MD DR: KARINA/kaitlin JOB#: [id number] / [id number]
--- NOTE | 2019-03-13 01:49 | PN ---
DATE: 03/10/2019 PSYCHIATRIC PROGRESS NOTE This late entry, 03/10/2019, covers elements not covered in my initial note. SUBJECTIVE: I met with the patient in the evening of 03/10/2019. The patient slept 7-1/4 hours previous night. She continues to have auditory hallucinations, conversations, commenting on her, but no command hallucinations as I questioned her. She states demons have been seeing things to her. She does complain of some constipation and we will address it with a Fleet's enema and start her on some Colace and Dulcolax p.r.n. REVIEW OF SYSTEMS: No CV, , pulmonary, eye, ENT system symptoms on review. MENTAL STATUS EXAM: Oriented to herself and situation. Speech is coherent, has some latency. Abstraction fair, computation impaired, language function intact, attention span short. Mood and affect remain somewhat withdrawn. LABORATORY DATA: Reviewed. IMPRESSION: Schizoaffective disorder, bipolar type, mixed with psychotic features; anxiety disorder, unspecified; chronic constipation. Rest unchanged. The patient states she has had no bowel movement since she was readmitted on 03/01/2019. PLAN: We will continue her current psychotropics. Geodon would be gradually increased to address her psychosis and we will increase to 40 mg b.i.d., rest unchanged including Depakote, Remeron and trazodone. MAN Bam OLIVARES MD DR: KARINA/kaitlin JOB#: [id number] / [id number]
[2019-03-13 06:12] VITALS: BP 96/61
[2019-03-13] MEDS: MULTIZYME PO SCH ×3 (07:59→15:51)
[2019-03-13] MEDS: ZIPRASIDONE 40 MG CAPSULE. PO SCH ×2 (07:59→20:14)
[2019-03-13] MEDS: DOCUSATE SODIUM 100 MG CAPSULE PO SCH ×2 (07:59→20:15)
[2019-03-13] MEDS: MAGNESIUM OXIDE 400 MG TABLET PO SCH ×2 (12:03→15:51)
[2019-03-13 15:49] VITALS: BP 100/67
[2019-03-13] MEDS: MIRTAZAPINE 7.5 MG TABLET. PO SCH (20:14)
[2019-03-13] MEDS: DIVALPROEX ER 500 MG TAB.ER.24H PO SCH (20:15)
[2019-03-13] MEDS: DIVALPROEX ER 250 MG TAB.ER.24H. PO SCH (20:15)
[2019-03-13] MEDS: traZODone 50 MG TABLET. PO PRN (20:55)
--- NOTE | 2019-03-13 22:52 | PDOC ---
Exam Note: Donato Note: Please also refer to the separate dictated note~for this date of service dictated separately.~Patient seen individually. Discussed the patient with Nursing staff reviewed the chart.~Reviewed interim history and current functioning. Reviewed vital signs,~Labs/ Radiology~and current medications noted below. Continue current treatment with the changes noted in the dictated addendum note Assessment: Vital Signs/I&O: Vital Signs Date Time Temp Pulse Resp B/P (MAP) Pulse Ox O2 Delivery O2 Flow Rate FiO2 03/13/19 15:49 97.5 74 20 100/67 (78) 98 03/12/19 06:10 Room Air I & O 03/12/19 03/12/19 03/13/19 15:00 23:00 07:00 Intake Total 960 ml 360 ml Balance 960 ml 360 ml Current Medications: Meds: Current Medications Medications (Trade) Dose Ordered Sig/Jabari Route PRN Reason Start Time Stop Time Status Last Admin Dose Admin Olanzapine (ZyPREXA ZYDIS) 5 mg PRN Q2HR PRN PO PSYCHOSIS 03/13/19 18:45 03/13/19 21:00 I have reviewed the current psychotropics carefully including drug interactions. Risk benefit ratio favors no change other than as noted in my dictated progress note. Diagnosis: Problems: (1) Anxiety disorder (2) Schizoaffective disorder, bipolar type (3) Psychosis, atypical (4) Mild cognitive impairment (5) Impulse control disorder NILSON OLIVARES MD Mar 13, 2019 22:52
[2019-03-14 06:02] VITALS: BP 133/67
[2019-03-14] MEDS: MULTIZYME PO SCH ×3 (07:30→15:51)
[2019-03-14] MEDS: MAGNESIUM OXIDE 400 MG TABLET PO SCH ×2 (07:47→15:51)
[2019-03-14] MEDS: ZIPRASIDONE 40 MG CAPSULE. PO SCH ×2 (07:47→19:59)
[2019-03-14] MEDS: DOCUSATE SODIUM 100 MG CAPSULE PO SCH ×2 (07:47→20:00)
[2019-03-14] MEDS: SENNOSIDES/DOCUSATE 8.6/50MG TABLET. PO PRN (13:23)
[2019-03-14] MEDS: MAGNESIUM HYDROXIDE 2,400 MG/30 ML ORAL.SUSP. PO PRN (15:44)
[2019-03-14] MEDS: LORazepam 0.5 MG TABLET PO PRN (15:51)
[2019-03-14 16:15] VITALS: BP 121/67
[2019-03-14] MEDS: DIVALPROEX ER 500 MG TAB.ER.24H PO SCH (20:00)
[2019-03-14] MEDS: MIRTAZAPINE 7.5 MG TABLET. PO SCH (20:00)
[2019-03-14] MEDS: DIVALPROEX ER 250 MG TAB.ER.24H. PO SCH (20:00)
[2019-03-14] MEDS: traZODone 50 MG TABLET. PO PRN (20:00)
--- NOTE | 2019-03-14 22:06 | PDOC ---
Exam Note: Donato Note: Please also refer to the separate dictated note~for this date of service dictated separately.~Patient seen individually. Discussed the patient with Nursing staff reviewed the chart.~Reviewed interim history and current functioning. Reviewed vital signs,~Labs/ Radiology~and current medications noted below. Continue current treatment with the changes noted in the dictated addendum note Assessment: Vital Signs/I&O: Vital Signs Date Time Temp Pulse Resp B/P (MAP) Pulse Ox O2 Delivery O2 Flow Rate FiO2 03/14/19 16:15 97.2 81 16 121/67 (85) 94 Room Air I & O 03/13/19 03/13/19 03/14/19 15:00 23:00 07:00 Intake Total 720 ml 360 ml Balance 720 ml 360 ml Current Medications: Meds: Current Medications Medications (Trade) Dose Ordered Sig/Jabari Route PRN Reason Start Time Stop Time Status Last Admin Dose Admin Lorazepam (Ativan) 0.5 mg Q2HR PRN PO ANXIETY / AGITATION 03/14/19 15:30 03/14/19 15:51 I have reviewed the current psychotropics carefully including drug interactions. Risk benefit ratio favors no change other than as noted in my dictated progress note. Diagnosis: Problems: (1) Anxiety disorder (2) Schizoaffective disorder, bipolar type (3) Psychosis, atypical (4) Mild cognitive impairment (5) Impulse control disorder NILSON OLIVARES MD Mar 14, 2019 22:06
--- NOTE | 2019-03-15 05:26 | PN ---
DATE: 03/12/2019 PSYCHIATRIC PROGRESS NOTE This late entry of 03/12/2019 covers elements not covered in my initial note. SUBJECTIVE: I met with the patient in the evening of 03/12/2019 at length in her room. The patient slept 7-3/4 hours previous night. She has been anxious, restless, still complains of hallucinations and obsessive thought processes. She is quite withdrawn, spends much time in her room, which is where I met with her. She did receive Zyprexa p.r.n. after nursing staff called me as an emergency as a consequent to her psychosis and worsening anxiety. She states she hears a man's voice telling her to do bad things. EKG; QT corrected interval 12/20. REVIEW OF SYSTEMS: No CV, , PULMONARY, EYE, ENT system symptoms on review. MENTAL STATUS EXAM: Oriented to herself and situation. Speech is coherent, has some latency. Abstraction fair, computation impaired, language function intact. Mood and affect somewhat withdrawn. LABORATORY DATA: Reviewed. IMPRESSION: Schizoaffective disorder, bipolar type, mixed with psychotic features; anxiety disorder, unspecified; rule out obsessive thought processes, or anxiety. Rest unchanged. PLAN: Continue current psychotropics, Geodon is 40 mg b.i.d., Depakote ER 750 mg at bedtime, level therapeutic at 51. Trazodone 50 mg at bedtime p.r.n., may repeat x 1 for now. NILSON OLIVARES MD DR: KARINA/kaitlin JOB#: [id number] / [id number]
[2019-03-15 05:44] VITALS: BP 98/63
[2019-03-15] MEDS: MULTIZYME PO SCH ×3 (07:30→16:04)
[2019-03-15] MEDS: MAGNESIUM OXIDE 400 MG TABLET PO SCH ×2 (07:45→16:04)
[2019-03-15] MEDS: ZIPRASIDONE 40 MG CAPSULE. PO SCH (07:45)
[2019-03-15] MEDS: DOCUSATE SODIUM 100 MG CAPSULE PO SCH ×2 (07:45→20:27)
[2019-03-15] MEDS: SODIUM PHOSPHATES 19/7GM 133 ML ENEMA. PR PRN (09:03)
[2019-03-15] MEDS: LORazepam 0.5 MG TABLET PO PRN ×3 (09:13→21:31)
[2019-03-15 15:39] VITALS: BP 118/65
[2019-03-15] MEDS: SENNOSIDES/DOCUSATE 8.6/50MG TABLET. PO PRN (16:12)
[2019-03-15] MEDS: DIVALPROEX ER 250 MG TAB.ER.24H. PO SCH (20:26)
[2019-03-15] MEDS: MIRTAZAPINE 7.5 MG TABLET. PO SCH (20:27)
[2019-03-15] MEDS: DIVALPROEX ER 500 MG TAB.ER.24H PO SCH (20:27)
[2019-03-15] MEDS: ZIPRASIDONE 60 MG CAPSULE. PO SCH (20:29)
--- NOTE | 2019-03-15 21:06 | PDOC ---
Exam Note: Donato Note: Please also refer to the separate dictated note~for this date of service dictated separately.~Patient seen individually. Discussed the patient with Nursing staff reviewed the chart.~Reviewed interim history and current functioning. Reviewed vital signs,~Labs/ Radiology~and current medications noted below. Continue current treatment with the changes noted in the dictated addendum note Assessment: Vital Signs/I&O: Vital Signs Date Time Temp Pulse Resp B/P (MAP) Pulse Ox O2 Delivery O2 Flow Rate FiO2 03/15/19 15:39 97.9 73 20 118/65 (82) 94 03/14/19 16:15 Room Air I & O 03/14/19 03/14/19 03/15/19 15:00 23:00 07:00 Intake Total 480 ml 300 ml Balance 480 ml 300 ml Current Medications: Meds: Current Medications Medications (Trade) Dose Ordered Sig/Jabari Route PRN Reason Start Time Stop Time Status Last Admin Dose Admin Fluvoxamine Maleate (Luvox) 25 mg QHS PO 03/15/19 21:00 03/15/19 20:28 Sodium Biphosphate/ Sodium Phosphate (Fleet Adult) 133 ml PRN DAILY PRN IA CONSTIPATION 03/15/19 08:45 03/15/19 09:03 Ziprasidone (Geodon) 60 mg HS PO 03/15/19 21:00 03/15/19 20:29 I have reviewed the current psychotropics carefully including drug interactions. Risk benefit ratio favors no change other than as noted in my dictated progress note. Diagnosis: Problems: (1) Anxiety disorder (2) Schizoaffective disorder, bipolar type (3) Psychosis, atypical (4) Mild cognitive impairment (5) Impulse control disorder NILSON OLIVARES MD Mar 15, 2019 21:06
[2019-03-15] MEDS: traZODone 50 MG TABLET. PO PRN (21:30)
--- NOTE | 2019-03-16 00:02 | PN ---
DATE: 03/14/2019 PSYCHIATRIC PROGRESS NOTE This late entry 03/14/2019, covers the elements not covered in my initial note. SUBJECTIVE: I met with the patient at length in her room, previously discussed with nursing staff about her constipation and symptomatic treatment including Fleet's enema for this. She was more interactive last evening, still complains of hearing a male voice telling her to do things, but seems to be an internal voice somewhat obsessive about this. REVIEW OF SYSTEMS: Positive for the constipation. No CV, , pulmonary, eyes, ENT system symptoms on review. MENTAL STATUS EXAM: Oriented reasonably. Speech is coherent, has some latency. Abstraction fair, computation impaired, language function intact, attention span short. Mood and affect somewhat withdrawn. LABORATORY DATA: Reviewed. IMPRESSION: Schizoaffective disorder, bipolar type, mixed with psychotic features, obsessive-compulsive disorder; anxiety disorder, unspecified. PLAN: Continue Geodon 40 mg b.i.d., Depakote ER 750 at bedtime, level therapeutic, Remeron 7.5 mg at bedtime, start Luvox 25 mg p.o. at bedtime. Continue Zyprexa and Ativan and trazodone p.r.n. NILSON OLIVARES MD DR: KARINA/kaitlin JOB#: [id number] / [id number]
--- NOTE | 2019-03-16 03:01 | PN ---
DATE: 03/13/2019 This late entry date of service 03/13/2019 covers elements not covered in my initial note. SUBJECTIVE: I met with the patient at some length the evening of 03/13/2019 in her room. The patient slept 6 hours previous night. She states she is still hearing voices of strange people. She feels some of these voices had tunneled to her head and mostly a man's voice. There are questionable command hallucinations at times. REVIEW OF SYSTEMS: Still complains of constipation and we are addressing this symptomatically. No CV, , pulmonary, eye system symptoms on review. MENTAL STATUS EXAM: The patient is reasonably oriented. Speech has some latency, coherent. Abstraction fair, computation impaired, language function intact, attention span short. Mood and affect somewhat withdrawn. She slept 6 hours previous night. LABORATORY DATA: Reviewed. IMPRESSION: Unchanged from initial note. PLAN: Geodon has been increased to 40 mg twice a day. She responds well to Zyprexa, but the 2.5 mg p.r.n. is ineffective. Nursing staff had called me as an emergency earlier in the day and we increased the Zyprexa to 5 mg q.2 hours p.r.n. max 20 mg in 24 hours. Maintain Depakote ER 750 mg at bedtime. Valproic acid level therapeutic at 51, Remeron 7.5 at bedtime, trazodone p.r.n. May consider Clozaril if all other antipsychotics fail. May also consider Luvox for her OCD symptoms, which the obsessive thoughts could be contributing to some of her presentation. MAN Bam OLIVARES MD DR: KARINA/kaitlin JOB#: [id number] / [id number]
[2019-03-16 05:23] VITALS: BP 91/58
[2019-03-16 07:23] LABS: BASO % 1 % (0-3); EOS # 0.2 x10^3/uL (0.0-0.7); EOS % 4 % (0-3); HEMATOCRIT 38.2 % (36.0-47.0); HEMOGLOBIN 12.7 g/dL (12.0-15.5); LYMPH # 1.3 x10^3/uL (1.0-4.8); LYMPH % 29 % (24-48); MEAN CORPUSCULAR HEMOGLOBIN 30 pg (25-35); MEAN CORPUSCULAR HGB CONC 33 g/dL (31-37); MEAN CORPUSCULAR VOLUME 90 fL (79-100); MONO # 0.4 x10^3/uL (0.0-1.1); MONO % 9 % (0-9); NEUT # 2.6 x10^3uL (1.8-7.7); NEUT % 57 % (31-73); PLATELET COUNT 221 x10^3/uL (140-400); RED BLOOD COUNT 4.26 x10^6/uL (3.50-5.40); RED CELL DISTRIBUTION WIDTH 13.2 % (11.5-14.5); WHITE BLOOD COUNT 4.6 x10^3/uL (4.0-11.0)
[2019-03-16] MEDS: MULTIZYME PO SCH ×3 (07:30→16:30)
[2019-03-16 07:37] LABS: ALBUMIN/GLOBULIN RATIO 0.9 (1.0-1.7); CALCIUM 8.6 mg/dL (8.5-10.1); CREATININE 0.6 mg/dL (0.6-1.0); GFR 97.2; POTASSIUM 4.3 mmol/L (3.5-5.1); TOTAL BILIRUBIN 0.2 mg/dL (0.2-1.0); TOTAL PROTEIN 6.5 g/dL (6.4-8.2)
[2019-03-16] MEDS: DOCUSATE SODIUM 100 MG CAPSULE PO SCH ×2 (07:58→19:40)
[2019-03-16] MEDS: ZIPRASIDONE 40 MG CAPSULE. PO SCH (07:58)
--- NOTE | 2019-03-16 09:39 | PN ---
DATE: 03/15/2019 PSYCHIATRIC PROGRESS NOTE This late entry 03/15/2019 covers elements not covered in my initial note. SUBJECTIVE: I met with the patient in the evening of 03/15/2019. The patient slept 7-3/4 hours previous night. Social service staff addressed with her . The patient gets overwhelmed when she becomes extremely religiously preoccupied repeating the Bible to her and somewhat overbearing. He agreed to miss the visit with her on 03/15/2019. She was agitated in the morning, received Zyprexa and Ativan at 9:13 a.m., fleet's enema in the morning and then again Zyprexa and Ativan for her anxiety and some auditory hallucinations in the evening at 4:00 p.m. Some of these auditory hallucinations in fact appeared to be obsessive thought processes. She had a small bowel movement. As I met with her, she talked about a male voice she was hearing internally in her head commenting on her and telling her to do things, but no suicidal or homicidal ideation. REVIEW OF SYSTEMS: Still positive for the constipation. No CV, , pulmonary, eye, ENT system symptoms on review. MENTAL STATUS EXAM: Oriented reasonably. Speech is coherent, abstraction fair, computation impaired, language function intact, attention span short. Mood and affect somewhat withdrawn. LABORATORY DATA: Reviewed. IMPRESSION: Schizoaffective disorder, bipolar type, mixed with psychotic features, obsessive-compulsive disorder, anxiety disorder, unspecified. Rest as above. PLAN: On 03/16/2019, increase Geodon from 40 mg b.i.d. to 40 mg in the morning and 60 mg in the evening. She is also on Luvox 25 mg p.o. at bedtime along with Depakote and the level is therapeutic. Continue Remeron, trazodone, along with Ativan and Zyprexa p.r.n. May need to increase Luvox gradually and treat the constipation symptomatically. NILSON OLIVARES MD DR: KARINA/kaitlin JOB#: [id number] / [id number]
[2019-03-16] MEDS: MAGNESIUM OXIDE 400 MG TABLET PO SCH ×2 (11:56→17:25)
[2019-03-16] MEDS: LORazepam 0.5 MG TABLET PO PRN ×3 (12:03→22:44)
--- NOTE | 2019-03-16 14:19 | EKG ---
[address] [address] Test Date: 2019-03-01 Test Time: 18:31:45 Pat Name: JEAN DESAI Department: Room: [address] [place] [address] Gender: Flat[employer] Presser: : 1940 Requested By: FILIBERTO BENDER Order Number: [id number] Reading MD: Carrington Tran MD Measurements Intervals Marlin Rate: P: NV: QRS: QRSD: T: QT: QTc: Interpretive Statements SR Electronically Signed On 03-25-2019 13:53:35 CDT by Carrington Tran MD
[2019-03-16 16:17] VITALS: BP 119/72
[2019-03-16] MEDS: MIRTAZAPINE 7.5 MG TABLET. PO SCH (19:39)
[2019-03-16] MEDS: DIVALPROEX ER 250 MG TAB.ER.24H. PO SCH (19:39)
[2019-03-16] MEDS: ZIPRASIDONE 60 MG CAPSULE. PO SCH (19:40)
[2019-03-16] MEDS: DIVALPROEX ER 500 MG TAB.ER.24H PO SCH (19:40)
--- NOTE | 2019-03-16 22:13 | PDOC ---
Exam Note: Donato Note: Please also refer to the separate dictated note~for this date of service dictated separately.~Patient seen individually. Discussed the patient with Nursing staff reviewed the chart.~Reviewed interim history and current functioning. Reviewed vital signs,~Labs/ Radiology~and current medications noted below. Continue current treatment with the changes noted in the dictated addendum note Assessment: Vital Signs/I&O: Vital Signs Date Time Temp Pulse Resp B/P (MAP) Pulse Ox O2 Delivery O2 Flow Rate FiO2 03/16/19 16:17 97.0 70 16 119/72 (88) 96 03/16/19 05:23 Room Air I & O 03/15/19 03/15/19 03/16/19 14:59 22:59 06:59 Intake Total 720 ml 240 ml Balance 720 ml 240 ml Labs: Laboratory Tests Test 03/16/19 07:02 White Blood Count 4.6 x10^3/uL (4.0-11.0) Red Blood Count 4.26 x10^6/uL (3.50-5.40) Hemoglobin 12.7 g/dL (12.0-15.5) Hematocrit 38.2 % (36.0-47.0) Mean Corpuscular Volume 90 fL (79-100) Mean Corpuscular Hemoglobin 30 pg (25-35) Mean Corpuscular Hemoglobin Concent 33 g/dL (31-37) Red Cell Distribution Width 13.2 % (11.5-14.5) Platelet Count 221 x10^3/uL (140-400) Neutrophils (%) (Auto) 57 % (31-73) Lymphocytes (%) (Auto) 29 % (24-48) Monocytes (%) (Auto) 9 % (0-9) Eosinophils (%) (Auto) 4 % (0-3) H Basophils (%) (Auto) 1 % (0-3) Neutrophils # (Auto) 2.6 x10^3uL (1.8-7.7) Lymphocytes # (Auto) 1.3 x10^3/uL (1.0-4.8) Monocytes # (Auto) 0.4 x10^3/uL (0.0-1.1) Eosinophils # (Auto) 0.2 x10^3/uL (0.0-0.7) Basophils # (Auto) 0.0 x10^3/uL (0.0-0.2) Sodium Level 137 mmol/L (136-145) Potassium Level 4.3 mmol/L (3.5-5.1) Chloride Level 101 mmol/L (98-107) Carbon Dioxide Level 30 mmol/L (21-32) Anion Gap 6 (6-14) Blood Urea Nitrogen 15 mg/dL (7-20) Creatinine 0.6 mg/dL (0.6-1.0) Estimated GFR (Cockcroft-Gault) 97.2 BUN/Creatinine Ratio 25 (6-20) H Glucose Level 86 mg/dL (70-99) Calcium Level 8.6 mg/dL (8.5-10.1) Total Bilirubin 0.2 mg/dL (0.2-1.0) Aspartate Amino Transferase (AST) 25 U/L (15-37) Alanine Aminotransferase (ALT) 27 U/L (14-59) Alkaline Phosphatase 70 U/L (46-116) Total Protein 6.5 g/dL (6.4-8.2) Albumin 3.0 g/dL (3.4-5.0) L Albumin/Globulin Ratio 0.9 (1.0-1.7) L Current Medications: Meds: Current Medications Medications (Trade) Dose Ordered Sig/Jabari Route PRN Reason Start Time Stop Time Status Last Admin Dose Admin Ziprasidone (Geodon) 40 mg DAILY PO 03/16/19 09:00 03/16/19 07:58 Fluvoxamine Maleate (Luvox) 50 mg QHS PO 03/16/19 21:00 03/16/19 19:40 I have reviewed the current psychotropics carefully including drug interactions. Risk benefit ratio favors no change other than as noted in my dictated progress note. Diagnosis: Problems: (1) Anxiety disorder (2) Schizoaffective disorder, bipolar type (3) Psychosis, atypical (4) Mild cognitive impairment (5) Impulse control disorder NILSON OLIVARES MD Mar 16, 2019 22:13
[2019-03-17] MEDS: traZODone 50 MG TABLET. PO PRN ×2 (01:36→21:21)
[2019-03-17 05:49] VITALS: BP 101/65
[2019-03-17] MEDS: MAGNESIUM OXIDE 400 MG TABLET PO SCH ×2 (08:02→16:40)
[2019-03-17] MEDS: DOCUSATE SODIUM 100 MG CAPSULE PO SCH ×2 (08:03→19:25)
[2019-03-17] MEDS: ZIPRASIDONE 40 MG CAPSULE. PO SCH (08:03)
[2019-03-17] MEDS: MULTIZYME PO SCH ×3 (08:03→16:41)
[2019-03-17 15:56] VITALS: BP 122/75
[2019-03-17] MEDS: DIVALPROEX ER 250 MG TAB.ER.24H. PO SCH (19:25)
[2019-03-17] MEDS: DIVALPROEX ER 500 MG TAB.ER.24H PO SCH (19:25)
[2019-03-17] MEDS: MIRTAZAPINE 7.5 MG TABLET. PO SCH (19:26)
[2019-03-17] MEDS: ZIPRASIDONE 60 MG CAPSULE. PO SCH (19:26)
[2019-03-17] MEDS: LORazepam 0.5 MG TABLET PO PRN (21:21)
--- NOTE | 2019-03-17 22:24 | PDOC ---
Exam Note: Donato Note: Please also refer to the separate dictated note~for this date of service dictated separately.~Patient seen individually. Discussed the patient with Nursing staff reviewed the chart.~Reviewed interim history and current functioning. Reviewed vital signs,~Labs/ Radiology~and current medications noted below. Continue current treatment with the changes noted in the dictated addendum note Assessment: Vital Signs/I&O: Vital Signs Date Time Temp Pulse Resp B/P (MAP) Pulse Ox O2 Delivery O2 Flow Rate FiO2 03/17/19 15:56 97.6 72 16 122/75 (91) 98 03/16/19 05:23 Room Air I & O 03/16/19 03/16/19 03/17/19 14:59 22:59 06:59 Intake Total 600 ml 240 ml 120 ml Balance 600 ml 240 ml 120 ml Current Medications: I have reviewed the current psychotropics carefully including drug interactions. Risk benefit ratio favors no change other than as noted in my dictated progress note. Diagnosis: Problems: (1) Anxiety disorder (2) Schizoaffective disorder, bipolar type (3) Psychosis, atypical (4) Mild cognitive impairment (5) Impulse control disorder (6) Bipolar disorder, mixed (7) Obsessive compulsive disorder NILSON OLIVARES MD Mar 17, 2019 22:24
--- NOTE | 2019-03-17 23:26 | PN ---
DATE: 03/16/2019 PSYCHIATRIC PROGRESS NOTE This late entry, 03/16, covers elements not covered in my initial note. SUBJECTIVE: I met with the patient the evening of 03/16 in her room. The patient slept 7-1/4 hours previous night. She has been coming out more and attending groups. She is still anxious, received Ativan and Zyprexa at 11:49 a.m. did not visit as he complied with the request that his visits seem to exacerbate her anxiety. She had a small bowel movement yesterday. Still obsessive about constipation, even though nursing staff states she has had some bowel movements more than she believes she has. REVIEW OF SYSTEMS: No CV, , pulmonary, eye system symptoms on review other than above. MENTAL STATUS EXAM: Reasonably oriented. Speech is coherent, has some latency. Abstraction fair, computation impaired, language function intact. She still admits to having intermittent hallucinations versus obsessive, ruminative thought processes. No suicidal or homicidal ideation. LABORATORY DATA: Reviewed. IMPRESSION: Unchanged from initial note. PLAN: We will go ahead and increase the Luvox to 50 mg at bedtime. Rest unchanged for now. MAN Bam OLIVARES MD DR: KARINA/kaitlin JOB#: [id number] / [id number]
[2019-03-18 06:36] VITALS: BP 96/60
[2019-03-18] MEDS: DOCUSATE SODIUM 100 MG CAPSULE PO SCH ×2 (08:00→20:15)
[2019-03-18] MEDS: ZIPRASIDONE 40 MG CAPSULE. PO SCH (08:00)
[2019-03-18] MEDS: MULTIZYME PO SCH ×3 (08:01→16:29)
[2019-03-18] MEDS: LORazepam 0.5 MG TABLET PO PRN ×4 (08:59→22:43)
[2019-03-18] MEDS: MAGNESIUM OXIDE 400 MG TABLET PO SCH ×2 (11:29→16:29)
[2019-03-18 16:37] VITALS: BP 137/76
[2019-03-18] MEDS: DIVALPROEX ER 250 MG TAB.ER.24H. PO SCH (20:13)
[2019-03-18] MEDS: DIVALPROEX ER 500 MG TAB.ER.24H PO SCH (20:13)
[2019-03-18] MEDS: MIRTAZAPINE 7.5 MG TABLET. PO SCH (20:13)
[2019-03-18] MEDS: ZIPRASIDONE 60 MG CAPSULE. PO SCH (20:15)
--- NOTE | 2019-03-18 22:39 | PDOC ---
Exam Note: Donato Note: Please also refer to the separate dictated note~for this date of service dictated separately.~Patient seen individually. Discussed the patient with Nursing staff reviewed the chart.~Reviewed interim history and current functioning. Reviewed vital signs,~Labs/ Radiology~and current medications noted below. Continue current treatment with the changes noted in the dictated addendum note Assessment: Vital Signs/I&O: Vital Signs Date Time Temp Pulse Resp B/P (MAP) Pulse Ox O2 Delivery O2 Flow Rate FiO2 03/18/19 16:37 97.4 98 16 137/76 (96) 96 Room Air I & O 03/17/19 03/17/19 03/18/19 14:59 22:59 06:59 Intake Total 600 ml 0 ml Balance 600 ml 0 ml Current Medications: I have reviewed the current psychotropics carefully including drug interactions. Risk benefit ratio favors no change other than as noted in my dictated progress note. Diagnosis: Problems: (1) Anxiety disorder (2) Schizoaffective disorder, bipolar type (3) Psychosis, atypical (4) Mild cognitive impairment (5) Impulse control disorder (6) Bipolar disorder, mixed (7) Obsessive compulsive disorder NILSON OLIVARES MD Mar 18, 2019 22:39
--- NOTE | 2019-03-19 00:10 | PN ---
DATE: 03/17/2019 PSYCHIATRIC PROGRESS NOTE This late entry 03/17/2019 covers elements not covered in my initial note. SUBJECTIVE: I met with the patient in the evening of 03/17/2019 at length in her room. The patient slept 5-3/4 hours previous night. She comes out for meals, rest of the time gets back to bed. She subjectively states that hallucinations are better, but she has more anxiety. No CV, , pulmonary, eye system symptoms on review. Still complains of constipation. MENTAL STATUS EXAM: Oriented reasonably. Speech is coherent, abstraction fair, computation impaired, language function intact, attention span short. Mood and affect remain somewhat withdrawn at times. LABORATORY DATA: Reviewed. IMPRESSION: Unchanged from initial note. PLAN: Continue current psychotropic, start Ativan 0.25 mg q. 4 hours p.r.n. anxiety, max 1.5 mg in 24 hours. MAN Bam OLIVARES MD DR: KARINA/kaitlin JOB#: [id number] / [id number]
--- NOTE | 2019-03-19 06:24 | EKG ---
[address] [address] Test Date: 2019-03-07 Test Time: 17:46:06 Pat Name: JEAN DESAI Department: Room: [address] [place] [address] Gender: F Civil Engineering Drafter: : 1940 Requested By: NILSON OLIVARES Order Number: [id number] Reading MD: Measurements Intervals [place] Rate: P: ND: QRS: QRSD: T: QT: QTc: Interpretive Statements
[2019-03-19 06:27] VITALS: BP 104/67
[2019-03-19] MEDS: MULTIZYME PO SCH ×3 (07:41→16:43)
[2019-03-19] MEDS: DOCUSATE SODIUM 100 MG CAPSULE PO SCH ×2 (07:41→20:02)
[2019-03-19] MEDS: ZIPRASIDONE 40 MG CAPSULE. PO SCH (07:41)
[2019-03-19] MEDS: LORazepam 0.5 MG TABLET PO PRN ×3 (11:52→22:10)
[2019-03-19] MEDS: MAGNESIUM OXIDE 400 MG TABLET PO SCH ×2 (11:52→16:42)
--- NOTE | 2019-03-19 13:47 | EKG ---
[address] [address] Test Date: 2019-03-07 Test Time: 17:46:06 Pat Name: JEAN DESAI Department: Room: [address] [place] [address] Gender: F Escrow Officer: : 1940 Requested By: NILSON OLIVARES Order Number: [id number] Reading MD: Measurements Intervals [place] Rate: P: IL: QRS: QRSD: T: QT: QTc: Interpretive Statements
[2019-03-19 15:56] VITALS: BP 101/65
[2019-03-19] MEDS: ZIPRASIDONE 60 MG CAPSULE. PO SCH (20:01)
[2019-03-19] MEDS: DIVALPROEX ER 250 MG TAB.ER.24H. PO SCH (20:02)
[2019-03-19] MEDS: DIVALPROEX ER 500 MG TAB.ER.24H PO SCH (20:02)
[2019-03-19] MEDS: MIRTAZAPINE 7.5 MG TABLET. PO SCH (20:02)
--- NOTE | 2019-03-19 22:09 | PDOC ---
Exam Note: Donato Note: Please also refer to the separate dictated note~for this date of service dictated separately.~Patient seen individually. Discussed the patient with Nursing staff reviewed the chart.~Reviewed interim history and current functioning. Reviewed vital signs,~Labs/ Radiology~and current medications noted below. Continue current treatment with the changes noted in the dictated addendum note Assessment: Vital Signs/I&O: Vital Signs Date Time Temp Pulse Resp B/P (MAP) Pulse Ox O2 Delivery O2 Flow Rate FiO2 03/19/19 15:56 97.9 77 16 101/65 (77) 95 Room Air I & O 03/18/19 03/18/19 03/19/19 15:00 23:00 07:00 Intake Total 720 ml 480 ml Balance 720 ml 480 ml Current Medications: Meds: Current Medications Medications (Trade) Dose Ordered Sig/Jabari Route PRN Reason Start Time Stop Time Status Last Admin Dose Admin Fluvoxamine Maleate (Luvox) 75 mg QHS PO 03/19/19 21:00 03/19/19 20:02 I have reviewed the current psychotropics carefully including drug interactions. Risk benefit ratio favors no change other than as noted in my dictated progress note. Diagnosis: Problems: (1) Anxiety disorder (2) Schizoaffective disorder, bipolar type (3) Psychosis, atypical (4) Mild cognitive impairment (5) Impulse control disorder (6) Bipolar disorder, mixed (7) Obsessive compulsive disorder NILSON OLIVARES MD Mar 19, 2019 22:09
--- NOTE | 2019-03-20 02:13 | PN ---
DATE: 03/18/2019 PSYCHIATRIC PROGRESS NOTE This late entry 03/18/2019 covers elements not covered in my initial note. SUBJECTIVE: I met with the patient in the evening of 03/18/2019. The patient was also staffed at a treatment team meeting with the entire team in the morning and the patient's attended this conference. Appetite 75-100%, sleeping 6-7 hours, somewhat withdrawn, compliant with medications, gets anxious at times. She was able to sit through an entire movie on Friday per activity therapy report. REVIEW OF SYSTEMS: Positive for ongoing anxiety. Though the auditory hallucinations are better she still complains of constipation. No CV, , pulmonary, eye system symptoms on review. MENTAL STATUS EXAM: Oriented reasonably. Speech is coherent, has some latency. Abstraction fair, computation impaired, language function intact, attention span short. Mood and affect is somewhat withdrawn. LABORATORY DATA: Reviewed. IMPRESSION: Unchanged. PLAN: No change from initial note. We will further adjust the Luvox. Continue Geodon along with the Depakote, Remeron. Treat the constipation symptomatically. NILSON OLIVARES MD DR: KARINA/kaitlin JOB#: [id number] / [id number]
[2019-03-20 05:28] VITALS: BP 112/67
[2019-03-20] MEDS: MULTIZYME PO SCH ×3 (08:01→16:31)
[2019-03-20] MEDS: ZIPRASIDONE 40 MG CAPSULE. PO SCH (08:02)
[2019-03-20] MEDS: DOCUSATE SODIUM 100 MG CAPSULE PO SCH ×2 (08:02→20:31)
[2019-03-20] MEDS: LORazepam 0.5 MG TABLET PO PRN ×3 (08:50→20:31)
[2019-03-20] MEDS: MAGNESIUM OXIDE 400 MG TABLET PO SCH ×2 (11:47→16:30)
[2019-03-20 15:34] VITALS: BP 125/73
[2019-03-20] MEDS: ZIPRASIDONE 60 MG CAPSULE. PO SCH (20:31)
[2019-03-20] MEDS: DIVALPROEX ER 250 MG TAB.ER.24H. PO SCH (20:31)
[2019-03-20] MEDS: DIVALPROEX ER 500 MG TAB.ER.24H PO SCH (20:31)
[2019-03-20] MEDS: MIRTAZAPINE 7.5 MG TABLET. PO SCH (20:31)
[2019-03-20] MEDS: SENNOSIDES/DOCUSATE 8.6/50MG TABLET. PO PRN (21:52)
[2019-03-20] MEDS: traZODone 50 MG TABLET. PO PRN (22:38)
--- NOTE | 2019-03-20 23:07 | PDOC ---
Exam Note: Donato Note: Please also refer to the separate dictated note~for this date of service dictated separately.~Patient seen individually. Discussed the patient with Nursing staff reviewed the chart.~Reviewed interim history and current functioning. Reviewed vital signs,~Labs/ Radiology~and current medications noted below. Continue current treatment with the changes noted in the dictated addendum note Assessment: Vital Signs/I&O: Vital Signs Date Time Temp Pulse Resp B/P (MAP) Pulse Ox O2 Delivery O2 Flow Rate FiO2 03/20/19 15:34 97.3 71 18 125/73 (90) 95 03/20/19 05:28 Room Air I & O 03/19/19 03/19/19 03/20/19 15:00 23:00 07:00 Intake Total 480 ml 240 ml 240 ml Balance 480 ml 240 ml 240 ml Current Medications: Meds: Current Medications Medications (Trade) Dose Ordered Sig/Jabari Route PRN Reason Start Time Stop Time Status Last Admin Dose Admin Ziprasidone (Geodon) 60 mg BID PO 03/20/19 21:00 03/20/19 20:31 I have reviewed the current psychotropics carefully including drug interactions. Risk benefit ratio favors no change other than as noted in my dictated progress note. Diagnosis: Problems: (1) Anxiety disorder (2) Schizoaffective disorder, bipolar type (3) Psychosis, atypical (4) Mild cognitive impairment (5) Impulse control disorder (6) Bipolar disorder, mixed (7) Obsessive compulsive disorder NILSON OLIVARES MD Mar 20, 2019 23:07
[2019-03-21] MEDS: LORazepam 0.5 MG TABLET PO PRN ×3 (00:20→20:44)
[2019-03-21 06:19] VITALS: BP 125/81
[2019-03-21] MEDS: MULTIZYME PO SCH ×3 (07:30→16:30)
[2019-03-21] MEDS: ZIPRASIDONE 60 MG CAPSULE. PO SCH ×2 (07:41→20:15)
[2019-03-21] MEDS: DOCUSATE SODIUM 100 MG CAPSULE PO SCH ×2 (07:41→20:15)
[2019-03-21] MEDS: MAGNESIUM OXIDE 400 MG TABLET PO SCH ×2 (11:30→16:30)
[2019-03-21] MEDS: SODIUM PHOSPHATES 19/7GM 133 ML ENEMA. PR PRN (15:37)
[2019-03-21 16:17] VITALS: BP 128/75
[2019-03-21] MEDS: MIRTAZAPINE 7.5 MG TABLET. PO SCH (20:14)
[2019-03-21] MEDS: DIVALPROEX ER 250 MG TAB.ER.24H. PO SCH (20:14)
[2019-03-21] MEDS: DIVALPROEX ER 500 MG TAB.ER.24H PO SCH (20:15)
--- NOTE | 2019-03-21 21:42 | PDOC ---
Exam Note: Donato Note: Please also refer to the separate dictated note~for this date of service dictated separately.~Patient seen individually. Discussed the patient with Nursing staff reviewed the chart.~Reviewed interim history and current functioning. Reviewed vital signs,~Labs/ Radiology~and current medications noted below. Continue current treatment with the changes noted in the dictated addendum note Assessment: Vital Signs/I&O: Vital Signs Date Time Temp Pulse Resp B/P (MAP) Pulse Ox O2 Delivery O2 Flow Rate FiO2 03/21/19 16:17 97.9 68 16 128/75 (92) 96 03/21/19 06:19 Room Air I & O 03/20/19 03/20/19 03/21/19 15:00 23:00 07:00 Intake Total 720 ml 240 ml 240 ml Balance 720 ml 240 ml 240 ml Current Medications: I have reviewed the current psychotropics carefully including drug interactions. Risk benefit ratio favors no change other than as noted in my dictated progress note. Diagnosis: Problems: (1) Anxiety disorder (2) Schizoaffective disorder, bipolar type (3) Psychosis, atypical (4) Mild cognitive impairment (5) Impulse control disorder (6) Bipolar disorder, mixed (7) Obsessive compulsive disorder NILSON OLIVARES MD Mar 21, 2019 21:42
--- NOTE | 2019-03-21 22:44 | PN ---
DATE: 03/19/2019 PSYCHIATRIC PROGRESS NOTE This late entry 03/19/2019 covers elements not covered in my initial note. SUBJECTIVE: I met with the patient in the evening. The patient slept 5-1/4 hours. Previous night, she was asking for Ativan, received it at 2245 and then on 03/19/2019 at 11:50 together with Zyprexa on account of increased anxiety, some paranoia. She has been withdrawn, spends much time in her room. REVIEW OF SYSTEMS: Positive for constipation and some of this seems to be obsessive, ruminative thinking. She gets more anxious in the evening. REVIEW OF SYSTEMS: Positive for the constipation, tiredness. No CV, , pulmonary, eye system symptoms on review. MENTAL STATUS EXAM: Reasonably oriented. Speech is coherent, abstraction fair, computation impaired, language function intact, attention span short. Mood and affect remain somewhat anxious, labile. LABORATORY DATA: Reviewed. IMPRESSION: Unchanged from initial note. PLAN: Increase Luvox from 50 mg at bedtime to 75 mg at bedtime. Rest unchanged for now. MAN Bam OLIVARES MD DR: KARINA/kaitlin JOB#: [id number] / [id number]
--- NOTE | 2019-03-21 22:46 | PN ---
DATE: 03/20/2019 PSYCHIATRIC PROGRESS NOTE This late entry 03/20/2019 covers elements not covered in my initial note. SUBJECTIVE: The patient in the evening. The patient slept 7-3/4 hours previous night. Previous evening, she was able to sit in the day room, watch a movie the entire time, which is an improvement. She has had Ativan twice during the day due to anxiety, somewhat isolative, still complains of hearing voices, but states they are internal and "perception." REVIEW OF SYSTEMS: Positive for complaints of constipation, and she has Fleet's Enema p.r.n. No CV, , pulmonary, eye system symptoms on review. MENTAL STATUS EXAM: Oriented to herself and situation. Speech has some latency, coherent. Abstraction fair, computation impaired, language function intact, attention span short. She remains anxious, somewhat obsessive. No suicidal or homicidal ideation. LABORATORY DATA: Reviewed. IMPRESSION: Unchanged from initial note. PLAN: We will check an EKG, if QTC is unremarkable. Increase Geodon to 60 mg twice a day. Continue rest unchanged. Luvox was increased to 75 mg at bedtime. MAN Bam OLIVARES MD DR: KARINA/kaitlin JOB#: [id number] / [id number]
[2019-03-22 06:50] VITALS: BP 111/73
[2019-03-22 07:21] LABS: BASO % 1 % (0-3); EOS # 0.2 x10^3/uL (0.0-0.7); EOS % 5 % (0-3); HEMATOCRIT 36.9 % (36.0-47.0); HEMOGLOBIN 12.1 g/dL (12.0-15.5); LYMPH # 1.6 x10^3/uL (1.0-4.8); LYMPH % 37 % (24-48); MEAN CORPUSCULAR HEMOGLOBIN 29 pg (25-35); MEAN CORPUSCULAR HGB CONC 33 g/dL (31-37); MEAN CORPUSCULAR VOLUME 90 fL (79-100); MONO # 0.4 x10^3/uL (0.0-1.1); MONO % 10 % (0-9); NEUT # 1.9 x10^3uL (1.8-7.7); NEUT % 46 % (31-73); PLATELET COUNT 204 x10^3/uL (140-400); RED BLOOD COUNT 4.12 x10^6/uL (3.50-5.40); RED CELL DISTRIBUTION WIDTH 13.2 % (11.5-14.5); WHITE BLOOD COUNT 4.2 x10^3/uL (4.0-11.0)
[2019-03-22 07:34] LABS: ALBUMIN 2.7 g/dL (3.4-5.0); ALBUMIN/GLOBULIN RATIO 0.8 (1.0-1.7); CALCIUM 8.5 mg/dL (8.5-10.1); CREATININE 0.7 mg/dL (0.6-1.0); GFR 81.4; MAGNESIUM 1.7 mg/dL (1.8-2.4); POTASSIUM 4.1 mmol/L (3.5-5.1); TOTAL BILIRUBIN 0.2 mg/dL (0.2-1.0)
[2019-03-22] MEDS: DOCUSATE SODIUM 100 MG CAPSULE PO SCH ×2 (07:54→19:50)
[2019-03-22] MEDS: ZIPRASIDONE 60 MG CAPSULE. PO SCH ×2 (07:54→19:50)
[2019-03-22] MEDS: MULTIZYME PO SCH ×3 (07:55→16:50)
[2019-03-22] MEDS: LORazepam 0.5 MG TABLET PO PRN ×4 (08:56→19:53)
[2019-03-22] MEDS: MAGNESIUM OXIDE 400 MG TABLET PO SCH ×2 (12:02→16:49)
[2019-03-22 16:18] VITALS: BP 110/67
[2019-03-22] MEDS: hydrOXYzine HCL 25 MG TABLET PO PRN (18:42)
[2019-03-22] MEDS: DIVALPROEX ER 500 MG TAB.ER.24H PO SCH (19:50)
[2019-03-22] MEDS: MIRTAZAPINE 7.5 MG TABLET. PO SCH (19:50)
[2019-03-22] MEDS: DIVALPROEX ER 250 MG TAB.ER.24H. PO SCH (19:50)
--- NOTE | 2019-03-22 22:31 | PDOC ---
Exam Note: Donato Note: Please also refer to the separate dictated note~for this date of service dictated separately.~Patient seen individually. Discussed the patient with Nursing staff reviewed the chart.~Reviewed interim history and current functioning. Reviewed vital signs,~Labs/ Radiology~and current medications noted below. Continue current treatment with the changes noted in the dictated addendum note Assessment: Vital Signs/I&O: Vital Signs Date Time Temp Pulse Resp B/P (MAP) Pulse Ox O2 Delivery O2 Flow Rate FiO2 03/22/19 16:18 97.3 74 16 110/67 (81) 96 03/21/19 06:19 Room Air I & O 03/21/19 03/21/19 03/22/19 14:59 22:59 06:59 Intake Total 720 ml 240 ml 0 ml Balance 720 ml 240 ml 0 ml Labs: Laboratory Tests Test 03/22/19 06:45 White Blood Count 4.2 x10^3/uL (4.0-11.0) Red Blood Count 4.12 x10^6/uL (3.50-5.40) Hemoglobin 12.1 g/dL (12.0-15.5) Hematocrit 36.9 % (36.0-47.0) Mean Corpuscular Volume 90 fL (79-100) Mean Corpuscular Hemoglobin 29 pg (25-35) Mean Corpuscular Hemoglobin Concent 33 g/dL (31-37) Red Cell Distribution Width 13.2 % (11.5-14.5) Platelet Count 204 x10^3/uL (140-400) Neutrophils (%) (Auto) 46 % (31-73) Lymphocytes (%) (Auto) 37 % (24-48) Monocytes (%) (Auto) 10 % (0-9) H Eosinophils (%) (Auto) 5 % (0-3) H Basophils (%) (Auto) 1 % (0-3) Neutrophils # (Auto) 1.9 x10^3uL (1.8-7.7) Lymphocytes # (Auto) 1.6 x10^3/uL (1.0-4.8) Monocytes # (Auto) 0.4 x10^3/uL (0.0-1.1) Eosinophils # (Auto) 0.2 x10^3/uL (0.0-0.7) Basophils # (Auto) 0.0 x10^3/uL (0.0-0.2) Sodium Level 135 mmol/L (136-145) L Potassium Level 4.1 mmol/L (3.5-5.1) Chloride Level 101 mmol/L (98-107) Carbon Dioxide Level 28 mmol/L (21-32) Anion Gap 6 (6-14) Blood Urea Nitrogen 13 mg/dL (7-20) Creatinine 0.7 mg/dL (0.6-1.0) Estimated GFR (Cockcroft-Gault) 81.4 BUN/Creatinine Ratio 19 (6-20) Glucose Level 87 mg/dL (70-99) Calcium Level 8.5 mg/dL (8.5-10.1) Magnesium Level 1.7 mg/dL (1.8-2.4) L Total Bilirubin 0.2 mg/dL (0.2-1.0) Aspartate Amino Transferase (AST) 20 U/L (15-37) Alanine Aminotransferase (ALT) 19 U/L (14-59) Alkaline Phosphatase 60 U/L (46-116) Total Protein 6.0 g/dL (6.4-8.2) L Albumin 2.7 g/dL (3.4-5.0) L Albumin/Globulin Ratio 0.8 (1.0-1.7) L Current Medications: Meds: Current Medications Medications (Trade) Dose Ordered Sig/Jabari Route PRN Reason Start Time Stop Time Status Last Admin Dose Admin Hydroxyzine HCl (Atarax) 25 mg PRN Q4HRS PRN PO ANXIETY 03/22/19 18:45 03/22/19 18:42 I have reviewed the current psychotropics carefully including drug interactions. Risk benefit ratio favors no change other than as noted in my dictated progress note. Diagnosis: Problems: (1) Anxiety disorder (2) Schizoaffective disorder, bipolar type (3) Psychosis, atypical (4) Mild cognitive impairment (5) Impulse control disorder (6) Bipolar disorder, mixed (7) Obsessive compulsive disorder NILSON OLIVARES MD Mar 22, 2019 22:31
[2019-03-22] MEDS ORDERED: FLUV50TA2 PO (23:09)
[2019-03-22] MEDS ORDERED: MIRT15TA3 PO (23:10)
[2019-03-22] MEDS ORDERED: TRAZ-120 PO (23:11)
[2019-03-22] MEDS ORDERED: OLAN5TAB5 PO (23:13)
[2019-03-22] MEDS ORDERED: ZIPR60CA2 PO (23:13)
[2019-03-22] MEDS ORDERED: LORA0.5T96 PO (23:14)
[2019-03-22] MEDS ORDERED: HYDR25TA PO (23:15)
[2019-03-22] MEDS ORDERED: NA P133E2 RC (23:16)
[2019-03-22] MEDS ORDERED: DOCU-109 PO (23:17)
[2019-03-22] MEDS ORDERED: SENN-161 PO (23:18)
--- NOTE | 2019-03-23 00:42 | PN ---
DATE: 03/21/2019 This late entry 03/21/2019 covers elements not covered in my initial note. SUBJECTIVE: I met with the patient evening of 03/21/2019. I met with her at length in her room. On the EKG, her corrected QT interval is 455. She is still obsessed with her bowel and had a small bowel movement. Still complains of the intrusive thoughts and questionable hallucinations. REVIEW OF SYSTEMS: No CV, , pulmonary, eye system symptoms on review. MENTAL STATUS EXAM: Reasonably oriented. Speech is coherent, abstraction fair, computation impaired, language function intact, attention span short. Mood and affect somewhat withdrawn. LABORATORY DATA: Reviewed. IMPRESSION: Unchanged from initial note. PLAN: No change from initial note. MAN Bam OLIVARES MD DR: KARINA/kaitlin JOB#: [id number] / [id number]
[2019-03-23 05:59] VITALS: BP 101/57
[2019-03-23] MEDS: ZIPRASIDONE 60 MG CAPSULE. PO SCH (08:05)
[2019-03-23] MEDS: DOCUSATE SODIUM 100 MG CAPSULE PO SCH (08:05)
[2019-03-23] MEDS: MULTIZYME PO SCH ×2 (08:05→11:31)
[2019-03-23] MEDS: LORazepam 0.5 MG TABLET PO PRN (09:03)
[2019-03-23] MEDS: hydrOXYzine HCL 25 MG TABLET PO PRN (11:31)
[2019-03-23] MEDS: MAGNESIUM OXIDE 400 MG TABLET PO SCH (11:31)
--- NOTE | 2019-03-23 21:01 | DS ---
DATE OF DISCHARGE: 03/23/2019 This note covers elements not covered in my initial note of 03/23/2019. REASON FOR ADMISSION: Please refer to the admission history for details. Briefly, the patient is a 78-year-old female who was admitted the same day as she was discharged from our unit, somewhat prematurely at the insistence of her . She returned home, was agitated, actively hallucinating, unmanageable in the home and the brought her back due to dangerous behaviors. SIGNIFICANT FINDINGS AND CLINICAL COURSE: Following admission, the patient was seen daily individually by myself from a psychiatric standpoint, medical followup with Dr. Dunn. She continued to have fairly significant auditory hallucinations with some obsessive thought processes. Adjustments were made in her psychotropics and she seemed to respond to a combination of Geodon 60 mg b.i.d., Depakote ER 750 mg at bedtime, Remeron 7.5 mg at bedtime, trazodone 50 mg at bedtime p.r.n., may repeat x 1, Zyprexa and Ativan p.r.n. and Luvox was added for her obsessiveness, adjusted to 75 mg p.o. at bedtime. Prior to discharge on 03/23/2019, no CV, , pulmonary, eye system symptoms on review, though she remains bowel obsessed and was getting repeated Fleet's enema and other symptomatic treatment for this. It is notable part of her obsessiveness she would have regular soap water enema at home that her would administer. MENTAL STATUS EXAM: Reasonably oriented. Speech coherent, abstraction fair, computation impaired. Mood and affect overall improved, still somewhat anxious, obsessive, but no suicidal or homicidal ideation. LABORATORY DATA: Reviewed. CONDITION AT DISCHARGE: Improved. FINAL DIAGNOSES: Schizoaffective disorder, bipolar type, mixed with psychotic features, in partial remission, chronic constipation; anxiety disorder, unspecified; impulse control disorder, unspecified. Rest unchanged from admission. DISCHARGE MEDICATIONS: Please refer to the [facility]AD. DISCHARGE INSTRUCTIONS: Outpatient psychiatric and medical followup as arranged prior to discharge. MAN Bam OLIVARES MD DR: KARINA/kaitlin JOB#: [id number] / [id number]
--- NOTE | 2019-03-23 22:33 | PDOC ---
Exam Note: Donato Note: Please also refer to the separate dictated note~for this date of service dictated separately.~Patient seen individually. Discussed the patient with Nursing staff reviewed the chart.~Reviewed interim history and current functioning. Reviewed vital signs,~Labs/ Radiology~and current medications noted below. Continue current treatment with the changes noted in the dictated addendum note Assessment: Vital Signs/I&O: Vital Signs Date Time Temp Pulse Resp B/P (MAP) Pulse Ox O2 Delivery O2 Flow Rate FiO2 03/23/19 05:59 97.3 67 16 101/57 (72) 96 Room Air I & O 03/22/19 03/22/19 03/23/19 14:59 22:59 06:59 Intake Total 840 ml 340 ml Balance 840 ml 340 ml Current Medications: I have reviewed the current psychotropics carefully including drug interactions. Risk benefit ratio favors no change other than as noted in my dictated progress note. Diagnosis: Problems: (1) Anxiety disorder (2) Schizoaffective disorder, bipolar type (3) Psychosis, atypical (4) Mild cognitive impairment (5) Impulse control disorder (6) Bipolar disorder, mixed (7) Obsessive compulsive disorder NILSON OLIVARES MD Mar 23, 2019 22:33
--- NOTE | 2019-03-23 23:26 | PN ---
DATE: 03/22/2019 This late entry, 03/22/2019, covers elements not covered in my initial note. SUBJECTIVE: I met with the patient in the evening. The patient slept 10 hours previous night. She is still bowel obsessed, received an enema, Ativan twice, and still complains of anxiety. We have added hydroxyzine p.r.n. She has been isolative, complains of some obsessive thought processes, anxious. REVIEW OF SYSTEMS: No CV, , pulmonary, eye system symptoms on review. MENTAL STATUS EXAM: Reasonably oriented. Speech is coherent, abstraction fair, computation impaired, language function intact, attention span short. Mood and affect somewhat withdrawn. LABORATORY DATA: Reviewed. IMPRESSION: Unchanged from initial note. PLAN: No change from initial note. MAN Bam OLIVARES MD DR: KARINA/akitlin JOB#: [id number] / [id number]
== END 2019-03-23 11:45 | disposition home or self-care (01) | DRG 885 ==
LOC: ER 17:33 → GEROPSY 21:04
PROVIDERS: ADMIT Psychiatry & Neurology Psychiatry; ATTEND Psychiatry & Neurology Psychiatry
DX: F25.0 Schizoaffective disorder, bipolar type (principal); R45.851 Suicidal ideations; F41.9 Anxiety disorder, unspecified; F42.9 Obsessive-compulsive disorder, unspecified; F63.9 Impulse disorder, unspecified; G31.84 Mild cognitive impairment of uncertain or unknown etiology; K59.09 Other constipation; M81.0 Age-related osteoporosis without current pathological fracture; R45.850 Homicidal ideations; Z79.899 Other long term (current) drug therapy; Z87.81 Personal history of (healed) traumatic fracture; M19.90 Unspecified osteoarthritis, unspecified site; Z90.49 Acquired absence of other specified parts of digestive tract; Z88.8 Allergy status to other drugs, medicaments and biological substances
CPT/HCPCS: 36415; 80053; 80061; 80164; 80307; 81001; 82306; 83036; 83540; 83550; 83735; 84436; 84443; 84480; 85025; 86592; 87086; 93005; 99285-25